=== PATIENT | female | born 1965 | race Asian ===

== ENCOUNTER 2019-12-10 15:19 | Outpatient (REF) | payer OTHER, SELFPAY ==
[2019-12-10 16:39] LABS: Rheumatoid Factor < 15.0 IU/mL (<15.0)
[2019-12-10 17:18] LABS: Erythrocyte Sedimentation Rate 7 MM/HR (0-20)
[2019-12-11 09:18] LABS: Syphilis Screen Nonreactive (Nonreactive)
[2019-12-12 05:47] LABS: Lyme Abs Screen <0.90 index
[2019-12-13 06:11] LABS: IgA 88 mg/dL (47-310); IgG 866 mg/dL (600-1640); IgM 106 mg/dL (50-300)
[2019-12-13 14:46] LABS: Anti Nuclear Antibody Screen NEGATIVE (NEGATIVE)
== END 2019-12-10 15:20 | disposition home or self-care (01) ==
LOC: HO.LAB 15:19
PROVIDERS: PCP Internal Medicine; Visit Provider Psychiatry & Neurology Neurology
DX: M79.603 Pain in arm, unspecified (principal); M79.606 Pain in leg, unspecified
CPT/HCPCS: 36415; 82550; 82784; 85652; 86038; 86039; 86334; 86431; 86618; 86780

== ENCOUNTER 2020-04-15 10:29 | Emergency (ER) | payer OTHER, SELFPAY ==
--- NOTE | ~2020-04-15 | CT_ITS ---
EXAMINATION: CT CHEST WITHOUT IV CONTRAST AND CT ABDOMEN AND PELVIS WITH IV CONTRAST CLINICAL INFORMATION: Pulmonary nodule. Weakness and chest pain. Upper abdominal pain. Poor appetite. COMPARISON: Previous chest x-ray from earlier the same day TECHNIQUE: Axial images through the chest without contrast. Axial images through the abdomen and pelvis following oral and IV contrast. Sagittal and coronal reconstructions on the technologist workstation were performed. Patient dose 4 4 9 mg/cm. This CT examination was performed using dose optimization techniques as appropriate, variously including the following: *Automated exposure control *Adjustment of mA and/or kV according to patient size (this includes techniques or standardized protocols for targeted exams where dose is matched to indication/reason for exam; i.e. extremities or head) *Use of iterative reconstruction technique FINDINGS: Chest: The lungs are clear. No pulmonary nodule is seen. Pulmonary nodule seen on chest x-ray likely corresponds to a nipple shadow. There is no pleural effusion or pleural thickening. The mediastinum is normal. No chest wall mass or enlarged axillary lymph nodes are seen. Abdomen and pelvis: The liver and gallbladder are unremarkable. The spleen is unremarkable. The pancreas is unremarkable. The adrenal glands are unremarkable. There is a 1.5 cm cyst in the upper pole of the right kidney. There is a 2 cm cyst in the lower pole of the right kidney. Kidneys are otherwise unremarkable. The bladder is empty. There is a stool throughout the colon questionable for constipation. Small and large bowel is otherwise unremarkable. The appendix is is not identified. The stomach is not optimally distended. Vascular structures are unremarkable. No hernia is seen. There are no enlarged lymph nodes. The uterus is slightly enlarged and retroverted. The uterus is lobular contour and heterogeneous in attenuation suggestive of multiple fibroids. There is a small amount of ascites in the pelvis. Review at bone windows is unremarkable. CT/CT abdomen pelvis w con IMPRESSION: Chest: Unremarkable exam. Abdomen and pelvis: Right renal cysts. Constipation. Enlarged fibroid uterus.
--- NOTE | ~2020-04-15 | XR_ITS ---
EXAMINATION: XR CHEST CLINICAL INFORMATION: Pain COMPARISON: Previous chest x-ray October 2008 TECHNIQUE: Frontal view of the chest was obtained. FINDINGS: The cardiac and mediastinal contours are normal. There is a 2 cm nodule at the right lung base. This is new from previous exam. The lungs are otherwise clear. There is no pleural effusion or pneumothorax. Bony structures are unremarkable. XR/XR chest 1V IMPRESSION: New 2 cm right pulmonary nodule. Follow-up chest CT scan recommended.
--- NOTE | 2020-04-15 10:34 | ECG_ITS ---
Test Reason : CHEST PAIN Blood Pressure : / mmHG Vent. Rate : 074 BPM Atrial Rate : 074 BPM P-R Int : 134 ms QRS Dur : 078 ms QT Int : 388 ms P-R-T Axes : 079 251 041 degrees QTc Int : 430 ms Normal sinus rhythm Right superior axis deviation Pulmonary disease pattern Right ventricular hypertrophy Septal infarct (cited on or before 08-NOV-2008) Abnormal ECG When compared with ECG of 09-MAR-2019 19:49, QT has shortened Referred By: Kelsea Dudley Electronically Signed By:ARLINE MEDRANO
[2020-04-15 10:43] VITALS: BP 136/90; PULSE 84; RESP 16; TEMP 36.6; O2SAT 100; BMI 16.8
--- NOTE | 2020-04-15 12:49 | ED.CHESTPAIN ---
HPI - Chest Pain General Chief Complaint: Chest Pain Stated Complaint: rapid heartbeat, weakness Time Seen by Provider: 04/15/20 12:49 Source: patient Mode of arrival: ambulatory Limitations: no limitations History of Present Illness HPI narrative: 55 yo female with no sig PMH c/o 2 weeks of chest heaviness today it was worse started while resting 9am mild dyspnea her chest feels heavy she states she feels better now, notes she has had leg and hand cramps recently no other infections MD complaint: chest heaviness Onset (ago): hour(s) (4) Timing of current episode: constant Prior episodes: Yes Onset: during rest Pain location: substernal Pain radiation: none Severity: mild Quality: aching Relieving factors: nothing Exacerbating factors: nothing Associated symptoms: nausea, dyspnea and palpitations Treatment prior to arrival: none Related Data Previous Rx's Medication Instructions Recorded cyclobenzaprine 10 mg PO TID PRN #14 tab 04/15/20 magnesium oxide 400 mg PO DAILY #10 tab 04/15/20 ondansetron 4 mg PO Q8H PRN #20 tab 04/15/20 sennosides [senna] 8.6 mg PO BEDTIME PRN #30 cap 04/15/20 Allergies Allergy/AdvReac Type Severity Reaction Status Date / Time No Known Allergies Allergy Unverified 10/31/19 17:50 Review of Systems Review of Systems: Constitutional : No Weight loss, No Fever, No Chills ENT/Mouth : No sore throat, No Rhinorrhea Eyes: No Eye Pain, No Swelling Cardiovascular : pos Chest Pain, pos SOB, no Dyspnea on Exertion, No Orthopnea, No Edema, pos Palpitations Respiratory : No Cough, No Sputum Gastrointestinal : pos Nausea, No Vomiting, No Diarrhea, No abdominal Pain, No Hematochezia, No Melena Genitourinary : No Dysuria, No Urinary Frequency Musculoskeletal : No joint pain, No Myalgias, No Joint Swelling Skin : No Skin Lesions, No rash Neuro : No Weakness, No Numbness, No Dizziness, No Headache Psych : No Anxiety/Panic, No Depression Heme/Lymph: No Bruising, No Lymphadenopathy Endocrine : No Polyuria, No Polydipsia All other systems reviewed and are negative PMFSH Past Medical History Medical History Patient denies medical problems Social History Social History (Updated 04/15/20 @ 13:17 by Kelsea Dudley DO) Alcohol intake: never Smoking Status: Never smoker Use of substances other than those prescribed or required for medical reasons: No Advance Directives: No Advance Directives Information Provided: No Physical Exam Vital Signs: Vital Signs: Last Vital Signs Temp 97.8 F 04/15/20 10:43 Pulse 86 04/15/20 15:07 Resp 16 04/15/20 15:07 BP 122/67 04/15/20 15:07 Pulse Ox 98 04/15/20 15:07 Body Mass Index 16.8 Appearance: Alert. Oriented X3. No acute distress. Eyes: Pupils equal, round and reactive to light. ENT: Pharynx normal. Neck: Normal inspection. Neck supple. CVS: Normal heart rate and rhythm. Pulses normal. Respiratory: No respiratory distress. Breath sounds normal. Abdomen: Soft and nontender. Skin: Skin warm and dry. Normal skin color. Normal skin turgor. Extremities: No lower extremity edema. No calf ttp Neuro: Oriented X 3. No motor deficit. No sensory deficit. Course Course Course Narrative: nodule noted on CXR will obtain CT scan for mass ddimer, EKG unchanged, trop negative at 5 hours at this time stable for DC MDM - Chest Pain MDM Narrative Medical decision making narrative: 55 yo female no sig PMH here with vague non exertional chest pain that is heavy with some palpitations and mild dyspnea - she feels fine now, symptoms have no triggers have been going on for 2 weeks, happened again today at 10am, at this time will need labs, EKG, troponin x 1, ddimer, CXR, gentle fluids dispo per results and findings. Lab Data Result diagrams: 04/15/20 13:23 04/15/20 13:23 Labs: Lab Results 04/15/20 04/15/20 04/15/20 Range/Units 13:23 13:23 13:23 WBC 3.5 L (4.8-10.8) X10*3/uL RBC 4.35 (4.20-5.50) X10*6/uL Hgb 13.2 (12.0-16.0) g/dl Hct 40.6 (37-47) % MCV 93.3 (80-98) fL MCH 30.3 (27.0-33.0) pg MCHC 32.5 (31.0-35.0) g/dl RDW 13.2 (11.0-16.0) % Plt Count 146 L (160-400) X10*3/uL MPV 9.9 (9.4-12.3) fL Immature Gran % (Auto) 0.0 (0.0-0.4) % Neut % (Auto) 66.3 (45-73) % Lymph % (Auto) 26.3 (20-40) % Wilkes % (Auto) 5.1 (2-11) % Eos % (Auto) 2.0 (0-4) % Baso % (Auto) 0.3 (0-2) % Lymph # (Auto) 0.9 L (1.2-4.9) X10*3/uL [place] # (Auto) 0.2 (0.1-1.2) X10*3/uL Eos # (Auto) 0.1 (0.0-0.4) X10*3/uL Baso # (Auto) 0.0 (0.0-0.2) X10*3/uL Abs Immat Gran (auto) 0.00 (0.00-0.03) X10*3/uL Absolute Neuts (auto) 2.3 (2.0-8.3) X10*3/uL Absolute Nucleated RBC 0.000 (0.0-0.012) X10*3/uL Nucleated RBC % (auto) 0.0 (0.0-0.2) /100WBC D-Dimer < 200 NG/ML Sodium 143 (135-145) mmol/L Potassium 4.1 (3.3-5.1) mmol/L Chloride 107 (96-108) mmol/L Carbon Dioxide 29 (22-29) mmol/L Anion Gap 11 L (12-20) BUN 11 (9-16) mg/dL Creatinine 0.77 (0.5-1.4) mg/dL Estim Creat Clear Calc 57.9 Estimated GFR > 60 Random Glucose 79 (60-115) mg/dL Calcium 8.9 (8.4-10.2) mg/dL Magnesium 2.4 (1.6-2.6) mg/dL Total Bilirubin 0.9 (0.0-1.0) mg/dL Direct Bilirubin 0.3 (0.0-0.5) mg/dL AST 32 H (5-31) U/L ALT 31 (0-31) U/L Alkaline Phosphatase 79 (39-117) U/L Troponin I High Sens (<3.5-17.0) ng/L B-Natriuretic Peptide (<100) pg/mL Total Protein 6.6 (6.5-8.0) g/dL Albumin 4.6 (3.5-5.0) g/dL Lipase 36 (8-78) U/L COVID-19 ([facility]) (Negative) COVID-19 Clin Com 04/15/20 04/15/20 Range/Units 13:23 13:23 WBC (4.8-10.8) X10*3/uL RBC (4.20-5.50) X10*6/uL Hgb (12.0-16.0) g/dl Hct (37-47) % MCV (80-98) fL MCH (27.0-33.0) pg MCHC (31.0-35.0) g/dl RDW (11.0-16.0) % Plt Count (160-400) X10*3/uL MPV (9.4-12.3) fL Immature Gran % (Auto) (0.0-0.4) % Neut % (Auto) (45-73) % Lymph % (Auto) (20-40) % [place] % (Auto) (2-11) % Eos % (Auto) (0-4) % Baso % (Auto) (0-2) % Lymph # (Auto) (1.2-4.9) X10*3/uL [place] # (Auto) (0.1-1.2) X10*3/uL Eos # (Auto) (0.0-0.4) X10*3/uL Baso # (Auto) (0.0-0.2) X10*3/uL Abs Immat Gran (auto) (0.00-0.03) X10*3/uL Absolute Neuts (auto) (2.0-8.3) X10*3/uL Absolute Nucleated RBC (0.0-0.012) X10*3/uL Nucleated RBC % (auto) (0.0-0.2) /100WBC D-Dimer NG/ML Sodium (135-145) mmol/L Potassium (3.3-5.1) mmol/L Chloride (96-108) mmol/L Carbon Dioxide (22-29) mmol/L Anion Gap (12-20) BUN (9-16) mg/dL Creatinine (0.5-1.4) mg/dL Estim Creat Clear Calc Estimated GFR Random Glucose (60-115) mg/dL Calcium (8.4-10.2) mg/dL Magnesium (1.6-2.6) mg/dL Total Bilirubin (0.0-1.0) mg/dL Direct Bilirubin (0.0-0.5) mg/dL AST (5-31) U/L ALT (0-31) U/L Alkaline Phosphatase (39-117) U/L Troponin I High Sens < 3.5 (<3.5-17.0) ng/L B-Natriuretic Peptide 82 (<100) pg/mL Total Protein (6.5-8.0) g/dL Albumin (3.5-5.0) g/dL Lipase (8-78) U/L COVID-19 ([facility]) Negative (Negative) COVID-19 Clin Com See Note ECG Data ECG #1: Attestation: I personally reviewed and interpreted this ECG as follows: ECG interpretation date: 04/15/20 ECG interpretation time: 12:55 Interpretation: Rate: 74 Rhythm: NSR [place]: right enlarged. Normal YOAN. Normal QRS complex. poor R wave progression ST T wave : no ALFONSO, nonspecific qTC: normal prior studies: no change Feb 2019 The study has been interpreted contemporaneously by me. . Discharge Plan Discharge Clinical Impression: Atypical chest pain Constipation Qualifiers: Constipation type: other constipation type Qualified Code(s): K59.09 - Other constipation Patient Disposition: Home, Self-Care Instructions: Chest Pain (ED), Constipation (ED), Weakness (ED) Additional Instructions: return to ED for any worsening symptoms or concerns your COVID test was negative you did have some fibroids in your uterus please discuss with your primary care doctor Prescriptions: New ondansetron 4 mg tablet,disintegrating 4 mg PO Q8H PRN (Reason: nausea and vomiting) Qty: 20 RF: 0 senna 8.6 mg capsule 8.6 mg PO BEDTIME PRN (Reason: constipation) Qty: 30 RF: 0 magnesium oxide 400 mg magnesium tablet 400 mg PO DAILY Qty: 10 RF: 0 cyclobenzaprine 10 mg tablet 10 mg PO TID PRN (Reason: muscle spasm) Qty: 14 RF: 0 Referrals: Jie Booth MD [Primary Care Provider] - 2 days (if not better)
[2020-04-15 13:30] LABS: MANUAL DIFF FLAG NO
[2020-04-15 13:33] LABS: Basophils Percent Auto 0.3 % (0-2); Eosinophils Absolute Auto 0.1 X10*3/uL (0.0-0.4); Hematocrit 40.6 % (37-47); Hemoglobin 13.2 g/dl (12.0-16.0); Lymphocytes Absolute Auto 0.9 X10*3/uL (1.2-4.9); Lymphocytes Percent Auto 26.3 % (20-40); Mean Corpuscular HGB Conc 32.5 g/dl (31.0-35.0); Mean Corpuscular Hemoglobin 30.3 pg (27.0-33.0); Mean Corpuscular Volume 93.3 fL (80-98); Mean Platelet Volume 9.9 fL (9.4-12.3); Monocytes Absolute Auto 0.2 X10*3/uL (0.1-1.2); Monocytes Percent Auto 5.1 % (2-11); Neutrophils Absolute Auto 2.3 X10*3/uL (2.0-8.3); Neutrophils Percent Auto 66.3 % (45-73); Platelet Count 146 X10*3/uL (160-400); Red Blood Count 4.35 X10*6/uL (4.20-5.50); Red Cell Distribution Width 13.2 % (11.0-16.0); White Blood Count 3.5 X10*3/uL (4.8-10.8)
[2020-04-15 13:51] LABS: COVID-19 Test Negative (Negative)
[2020-04-15 13:52] LABS: D Dimer < 200 NG/ML
[2020-04-15 14:00] LABS: Alanine Aminotransferase 31 U/L (0-31); Albumin Level 4.6 g/dL (3.5-5.0); Alkaline Phosphatase 79 U/L (39-117); Anion Gap 11 (12-20); Aspartate Amino Transferase 32 U/L (5-31); Bilirubin Direct 0.3 mg/dL (0.0-0.5); Bilirubin Total 0.9 mg/dL (0.0-1.0); Blood Urea Nitrogen 11 mg/dL (9-16); Calcium 8.9 mg/dL (8.4-10.2); Carbon Dioxide 29 mmol/L (22-29); Chloride 107 mmol/L (96-108); Creatinine Clr Calc Pharmacy 57.9; Estimated Glomerular Filt Rate > 60; Glucose Random 79 mg/dL (60-115); Lipase 36 U/L (8-78); Magnesium 2.4 mg/dL (1.6-2.6); Potassium 4.1 mmol/L (3.3-5.1); Sodium 143 mmol/L (135-145); Total Protein 6.6 g/dL (6.5-8.0)
[2020-04-15 14:02] LABS: B Type Natriuretic Peptide 82 pg/mL (<100)
[2020-04-15 14:05] LABS: Troponin-I High Sensitivity < 3.5 ng/L (<3.5-17.0)
[2020-04-15] MEDS: 0.9 % Sodium Chloride 500 ML IV (14:30)
[2020-04-15] MEDS: iohexoL 350 MG/ML 100 ML INFUS..BTL 85 ML IV (14:42)
[2020-04-15 15:07] VITALS: BP 122/67; PULSE 86; RESP 16; O2SAT 98
== END 2020-04-15 15:39 | disposition home or self-care (01) ==
PROVIDERS: Emergency Provider Emergency Medicine; PCP Internal Medicine
DX: R07.89 Other chest pain (principal); K59.09 Other constipation; Z20.822 Contact with and (suspected) exposure to COVID-19; Z79.899 Other long term (current) drug therapy
CPT/HCPCS: 36415; 71045; 71250; 74177; 80048; 80076; 83690; 83735; 83880; 84484; 85025; 85379; 87635; 93005; 99285; Q9967

== ENCOUNTER 2020-07-01 21:43 | Emergency (ER) | payer OTHER, SELFPAY ==
--- NOTE | ~2020-07-01 | XR_ITS ---
EXAMINATION: XR CHEST CLINICAL INFORMATION: Chest pain COMPARISON: CT chest 04/15/2020. Chest x-ray 04/15/2020 TECHNIQUE: Frontal view of the chest was obtained. FINDINGS: No significant abnormality is noted involving the heart, lungs, mediastinum, bony thorax or soft tissues. (Redemonstration of bilateral nipple shadows.) XR/XR chest 1V IMPRESSION: Unremarkable examination.
--- NOTE | 2020-07-01 21:45 | ECG_ITS ---
Test Reason : DIZZY Blood Pressure : / mmHG Vent. Rate : 072 BPM Atrial Rate : 072 BPM P-R Int : 150 ms QRS Dur : 086 ms QT Int : 424 ms P-R-T Axes : 072 259 056 degrees QTc Int : 464 ms Normal sinus rhythm Right superior axis deviation Possible Right ventricular hypertrophy Septal infarct (cited on or before 08-NOV-2008) Abnormal ECG When compared with ECG of 15-APR-2020 10:34, No significant change was found Referred By: Generic ED Physician Electronically Signed By:SHAKA STRICKLAND MD
[2020-07-01 21:49] VITALS: BP 139/85; PULSE 74; RESP 16; TEMP 36.8; O2SAT 98; BMI 16.6
--- NOTE | 2020-07-02 00:10 | ED.CHESTPAIN ---
HPI - Chest Pain General Chief Complaint: Chest Pain Stated Complaint: chest pain,dizziness Time Seen by Provider: 07/02/20 00:10 Source: patient and family (son) Mode of arrival: ambulatory Limitations: no limitations History of Present Illness HPI narrative: Patient is a 55-year-old female with no significant past medical history who is presenting with central chest pain x1 year. She states the pain is intermittent and she also wakes up with bilateral hand numbness and cramping, left more than right. She is also complaining of dizziness She also is complaining of extreme fatigue for an hour which resolves on its own and metallic taste in her mouth. She also states she has a headache and took ibuprofen once 3 days ago. She denies shortness of breath. She states she takes no medications on a daily basis. Patient states her symptoms have resolved. Related Data Previous Rx's Medication Instructions Recorded cyclobenzaprine 10 mg PO TID PRN #14 tab 04/15/20 magnesium oxide 400 mg PO DAILY #10 tab 04/15/20 ondansetron 4 mg PO Q8H PRN #20 tab 04/15/20 sennosides [senna] 8.6 mg PO BEDTIME PRN #30 cap 04/15/20 Allergies Allergy/AdvReac Type Severity Reaction Status Date / Time No Known Allergies Allergy Unverified 10/31/19 17:50 Review of Systems Review of Systems: Yes all other systems are reviewed and are negative PMFSH Past Medical History Medical History Patient denies medical problems Social History Social History Alcohol intake: never Smoking Status: Never smoker Advance Directives: No Advance Directives Information Provided: No Physical Exam Vital Signs: Vital Signs: Last Vital Signs Temp 98.2 F 07/01/20 21:49 Pulse 74 07/01/20 21:49 Resp 16 07/01/20 21:49 BP 139/85 07/01/20 21:49 Pulse Ox 98 07/01/20 21:49 Body Mass Index 16.6 Const: General: cooperative, healthy appearing, comfortable, no acute distress and well developed Orientation/consciousness: patient oriented x3 Limitations: no limitations HENMT: Head: Yes normal to inspection Eyes: General: appearance normal, both eyes and all related structures Neck: Neck: Yes normal visual inspection and Yes full ROM Resp: Effort & Inspection: normal respiratory effort and able to speak in complete sentences Auscultation: clear to auscultation bilaterally Cardio: Rate: regular rate Rhythm: regular rhythm Heart sounds: normal S1 and S2 GI: Inspection: Yes normal to inspection Palpation (GI): Soft to palpation and nontender Skin: General skin exam: no rashes or lesions noted Neuro: General: patient oriented x3 Cranial nerves: Yes CN's II-XII intact bilaterally Extrem: General: Yes normal to inspection Course Course Course Narrative: Patient is a 55-year-old female with no significant past medical history who is presenting with central chest pain x1 year. She states the pain is intermittent and she also wakes up with bilateral hand numbness and cramping, left more than right. She is also complaining of fatigue, dizziness and headache. EKG is NSR with 72 BPM, will get labs cardiac labs, if everything is normal, will likely discharge home as this seems to be a chronic issue. Reevaluation(s) Reevaluation #1: Labs show a pancytopenia with wbc 3.8, rbc 3.91 and platelets 130. Will have pt follow up with hematology. Chest x-ray was unremarkable. Time: 01:33 [facility] - Chest Pain Lab Data Result diagrams: 07/02/20 00:37 07/02/20 00:37 Labs: Lab Results 07/02/20 07/02/20 07/02/20 Range/Units 00:37 00:37 00:37 WBC 3.8 L (4.8-10.8) X10*3/uL RBC 3.91 L (4.20-5.50) X10*6/uL Hgb 12.1 (12.0-16.0) g/dl Hct 37.1 (37-47) % MCV 94.9 (80-98) fL MCH 30.9 (27.0-33.0) pg MCHC 32.6 (31.0-35.0) g/dl RDW 13.3 (11.0-16.0) % Plt Count 130 L (160-400) X10*3/uL MPV 9.9 (9.4-12.3) fL Immature Gran % (Auto) 0.0 (0.0-0.4) % Neut % (Auto) 54.3 (45-73) % Lymph % (Auto) 33.3 (20-40) % [place] % (Auto) 7.1 (2-11) % Eos % (Auto) 4.8 H (0-4) % Baso % (Auto) 0.5 (0-2) % Lymph # (Auto) 1.3 (1.2-4.9) X10*3/uL [place] # (Auto) 0.3 (0.1-1.2) X10*3/uL Eos # (Auto) 0.2 (0.0-0.4) X10*3/uL Baso # (Auto) 0.0 (0.0-0.2) X10*3/uL Abs Immat Gran (auto) 0.00 (0.00-0.03) X10*3/uL Absolute Neuts (auto) 2.1 (2.0-8.3) X10*3/uL Absolute Nucleated RBC 0.000 (0.0-0.012) X10*3/uL Nucleated RBC % (auto) 0.0 (0.0-0.2) /100WBC Hold Blue Top SEE NOTE Sodium 142 (135-145) mmol/L Potassium 4.1 (3.3-5.1) mmol/L Chloride 107 (96-108) mmol/L Carbon Dioxide 28 (22-29) mmol/L Anion Gap 11 L (12-20) BUN 21 H D (9-16) mg/dL Creatinine 0.78 (0.5-1.4) mg/dL Estim Creat Clear Calc 56.5 Estimated GFR > 60 Random Glucose 131 H D (60-115) mg/dL Calcium 8.8 (8.4-10.2) mg/dL Troponin I High Sens (<3.5-17.0) ng/L B-Natriuretic Peptide (<100) pg/mL Urine Color Urine Appearance Urine pH (5.0-8.0) Ur Specific Gerald[place] (1.005-1.025) Urine Protein (NEG-TRACE) MG/DL Urine Glucose (UA) (NEG) MG/DL Urine Ketones (NEG) MG/DL Urine Blood (NEG) Urine Nitrite (NEG) Ur Leukocyte Esterase (NEG) Urine RBC (0) /HPF Urine WBC (0-4) /HPF Ur Squamous Epith Cells /LPF Urine Bacteria /LPF 07/02/20 07/02/20 Range/Units 00:37 00:45 WBC (4.8-10.8) X10*3/uL RBC (4.20-5.50) X10*6/uL Hgb (12.0-16.0) g/dl Hct (37-47) % MCV (80-98) fL MCH (27.0-33.0) pg MCHC (31.0-35.0) g/dl RDW (11.0-16.0) % Plt Count (160-400) X10*3/uL MPV (9.4-12.3) fL Immature Gran % (Auto) (0.0-0.4) % Neut % (Auto) (45-73) % Lymph % (Auto) (20-40) % [place] % (Auto) (2-11) % Eos % (Auto) (0-4) % Baso % (Auto) (0-2) % Lymph # (Auto) (1.2-4.9) X10*3/uL [place] # (Auto) (0.1-1.2) X10*3/uL Eos # (Auto) (0.0-0.4) X10*3/uL Baso # (Auto) (0.0-0.2) X10*3/uL Abs Immat Gran (auto) (0.00-0.03) X10*3/uL Absolute Neuts (auto) (2.0-8.3) X10*3/uL Absolute Nucleated RBC (0.0-0.012) X10*3/uL Nucleated RBC % (auto) (0.0-0.2) /100WBC Hold Blue Top Sodium (135-145) mmol/L Potassium (3.3-5.1) mmol/L Chloride (96-108) mmol/L Carbon Dioxide (22-29) mmol/L Anion Gap (12-20) BUN (9-16) mg/dL Creatinine (0.5-1.4) mg/dL Estim Creat Clear Calc Estimated GFR Random Glucose (60-115) mg/dL Calcium (8.4-10.2) mg/dL Troponin I High Sens < 3.5 (<3.5-17.0) ng/L B-Natriuretic Peptide 38 (<100) pg/mL Urine Color YELLOW Urine Appearance HAZY Urine pH 7.5 (5.0-8.0) Ur Specific Gerald[place] 1.020 (1.005-1.025) Urine Protein NEG (NEG-TRACE) MG/DL Urine Glucose (UA) NEG (NEG) MG/DL Urine Ketones NEG (NEG) MG/DL Urine Blood 1+ H (NEG) Urine Nitrite NEG (NEG) Ur Leukocyte Esterase NEG (NEG) Urine RBC 1-4 (0) /HPF Urine WBC 1-4 (0-4) /HPF Ur Squamous Epith Cells 1+ /LPF Urine Bacteria 2+ /LPF ECG Data ECG #1: Attestation: I personally reviewed and interpreted this ECG as follows: ECG interpretation date: 07/02/20 ECG interpretation time: 00:11 Interpretation: [place] [id number] ReportDraft Patient: Carlos Castellanos DMR#: [id number]: 1965Acct:[id number]/Sex: 55 / FADM Date: 07/01/20Loc: [address] Dr: Ordering Physician: Generic ED Physician Date of Service: 07/01/20 Procedure(s): ECG 12 lead EKG Accession Number(s): [id number] cc: ~ Test Reason : DIZZY Blood Pressure : / mmHG Vent. Rate : 072 BPM Atrial Rate : 072 BPM P-R Int : 150 ms QRS Dur : 086 ms QT Int : 424 ms P-R-T Axes : 072 259 056 degrees QTc Int : 464 ms Normal sinus rhythm Right superior axis deviation Possible Right ventricular hypertrophy Septal infarct (cited on or before 08-NOV-2008) Abnormal ECG When compared with ECG of 15-APR-2020 10:34, No significant change was found Referred By: Generic ED Physician Electronically Signed By: Dictated By:Signed By: DD/ 51TD/TT: 07/01/202151Transcriptionist: Discharge Plan Discharge Clinical Impression: Pancytopenia Patient Disposition: Home, Self-Care Instructions: Pancytopenia (DC) Additional Instructions: Today while you were in the ED, your white blood cells, red blood cells and platelets were all noted to be lower than average. A hand candle molder is a kind of doctor who can help you find out why and address the issue. Please be sure to follow-up with your PCP or the hand candle molder I have listed below or a hand candle molder of your choosing. Prescriptions: No Action ondansetron 4 mg tablet,disintegrating 4 mg PO Q8H PRN (Reason: nausea and vomiting) Qty: 20 RF: 0 senna 8.6 mg capsule 8.6 mg PO BEDTIME PRN (Reason: constipation) Qty: 30 RF: 0 magnesium oxide 400 mg magnesium tablet 400 mg PO DAILY Qty: 10 RF: 0 cyclobenzaprine 10 mg tablet 10 mg PO TID PRN (Reason: muscle spasm) Qty: 14 RF: 0 Referrals: Coreen Abarca MD [Physician] - 2 days (pancytopenia in ED 07/01/20)
[2020-07-02 00:46] LABS: MANUAL DIFF FLAG NO
[2020-07-02 00:47] LABS: Basophils Percent Auto 0.5 % (0-2); Eosinophils Absolute Auto 0.2 X10*3/uL (0.0-0.4); Eosinophils Percent Auto 4.8 % (0-4); Hematocrit 37.1 % (37-47); Hemoglobin 12.1 g/dl (12.0-16.0); Lymphocytes Absolute Auto 1.3 X10*3/uL (1.2-4.9); Lymphocytes Percent Auto 33.3 % (20-40); Mean Corpuscular HGB Conc 32.6 g/dl (31.0-35.0); Mean Corpuscular Hemoglobin 30.9 pg (27.0-33.0); Mean Corpuscular Volume 94.9 fL (80-98); Mean Platelet Volume 9.9 fL (9.4-12.3); Monocytes Absolute Auto 0.3 X10*3/uL (0.1-1.2); Monocytes Percent Auto 7.1 % (2-11); Neutrophils Absolute Auto 2.1 X10*3/uL (2.0-8.3); Neutrophils Percent Auto 54.3 % (45-73); Platelet Count 130 X10*3/uL (160-400); Red Blood Count 3.91 X10*6/uL (4.20-5.50); Red Cell Distribution Width 13.3 % (11.0-16.0); White Blood Count 3.8 X10*3/uL (4.8-10.8)
[2020-07-02 00:53] LABS: Glucose Urine UA NEG (NEG); Leukocyte Esterase Urine NEG (NEG); Nitrite Urine NEG (NEG); PH 7.5 (5.0-8.0); Urine Blood 1+ (NEG); Urine Ketones NEG (NEG); Urine Protein NEG (NEG-TRACE)
[2020-07-02 00:54] LABS: Appearance Urine HAZY; Color Urine YELLOW
[2020-07-02 01:03] LABS: Bacteria Urine 2+ /LPF; Squamous Epithelial Cell Urine 1+ /LPF
[2020-07-02 01:11] LABS: Anion Gap 11 (12-20); Blood Urea Nitrogen 21 mg/dL (9-16); Calcium 8.8 mg/dL (8.4-10.2); Carbon Dioxide 28 mmol/L (22-29); Chloride 107 mmol/L (96-108); Creatinine Clr Calc Pharmacy 56.5; Estimated Glomerular Filt Rate > 60; Glucose Random 131 mg/dL (60-115); Potassium 4.1 mmol/L (3.3-5.1); Sodium 142 mmol/L (135-145)
[2020-07-02 01:16] LABS: B Type Natriuretic Peptide 38 pg/mL (<100); Troponin-I High Sensitivity < 3.5 ng/L (<3.5-17.0)
[2020-07-02 02:00] VITALS: BP 108/72; PULSE 77; RESP 18; TEMP 36.9; O2SAT 97
== END 2020-07-02 02:27 | disposition home or self-care (01) ==
PROVIDERS: Physician Assistant; Emergency Provider Emergency Medicine
DX: D61.818 Other pancytopenia (principal); R07.9 Chest pain, unspecified; R42 Dizziness and giddiness; R51.9 Headache, unspecified; Z79.899 Other long term (current) drug therapy
CPT/HCPCS: 36415; 71045; 80048; 81001; 83880; 84484; 85025; 93005; 99284

== ENCOUNTER 2020-07-09 15:38 | Outpatient (REF) | payer OTHER, SELFPAY | END 2020-07-09 15:39 | disposition home or self-care (01) | LOC: HO.LAB 15:38 | PROVIDERS: Visit Provider Internal Medicine | DX: Z20.822 Contact with and (suspected) exposure to COVID-19 (principal) | CPT/HCPCS: C9803; U0003; U0005 ==

== ENCOUNTER 2022-03-10 12:15 | Outpatient (REF) | payer OTHER, SELFPAY ==
[2022-03-10 15:11] LABS: Alanine Aminotransferase 20 U/L (0-31); Albumin Level 4.5 g/dL (3.5-5.0); Alkaline Phosphatase 90 U/L (39-117); Anion Gap 13 (12-20); Aspartate Amino Transferase 27 U/L (5-31); Bilirubin Total 0.8 mg/dL (0.0-1.0); Blood Urea Nitrogen 14 mg/dL (9-16); Calcium 9.2 mg/dL (8.4-10.2); Carbon Dioxide 28 mmol/L (22-29); Chloride 107 mmol/L (96-108); Estimated Glomerular Filt Rate > 60; Glucose Random 79 mg/dL (60-115); Phosphorus 3.7 mg/dL (2.7-4.5); Potassium 3.9 mmol/L (3.3-5.1); Sodium 144 mmol/L (135-145); Total Protein 6.8 g/dL (6.5-8.0)
[2022-03-10 15:29] LABS: Free T4 (Free Thyroxine) 1.01 ng/dL (0.71-1.85); Thyroid Stimulating Hormone 0.85 uIU/mL (0.32-4.0); Vitamin D 25-OH Total 33.5 ng/mL (>30)
[2022-03-11 11:49] LABS: Calcium (PTHI) 9.6 mg/dL (8.6-10.4); PTHI 56 pg/mL (16-77)
== END 2022-03-10 12:16 | disposition home or self-care (01) ==
LOC: HO.LAB 12:15
PROVIDERS: Visit Provider Internal Medicine
DX: C73 Malignant neoplasm of thyroid gland (principal); E55.9 Vitamin D deficiency, unspecified
CPT/HCPCS: 36415; 80053; 82306; 83970; 84100; 84439; 84443; 99202

== ENCOUNTER 2022-06-29 08:53 | Outpatient (REF) | payer OTHER, SELFPAY ==
[2022-06-29 11:13] LABS: Albumin Level 4.1 g/dL (3.5-5.0); Estimated Glomerular Filt Rate > 60; Phosphorus 3.5 mg/dL (2.7-4.5)
[2022-06-29 11:30] LABS: Thyroid Stimulating Hormone 0.05 uIU/mL (0.32-4.0); Vitamin D 25-OH Total 41.1 ng/mL (>30)
[2022-07-01 16:33] LABS: Calcium (PTHI) 8.9 mg/dL (8.6-10.4); PTHI 22 pg/mL (16-77)
[2022-07-13 17:43] LABS: Thyroglobulin Antibody 16 IU/mL (<=1); Thyroglobulin LC/MS/MS 2.8 ng/mL (Athyrotic: <0)
== END 2022-06-29 08:54 | disposition home or self-care (01) ==
LOC: HO.10HDL 08:53
PROVIDERS: Visit Provider Internal Medicine
DX: C73 Malignant neoplasm of thyroid gland (principal); E55.9 Vitamin D deficiency, unspecified
CPT/HCPCS: 36415; 82040; 82306; 82565; 83970; 84100; 84432; 84439; 84443; 86800

== ENCOUNTER → 2022-07-06 07:50 | Outpatient (BNVA) | payer OTHER, SELFPAY | PROVIDERS: PCP Internal Medicine; Visit Provider Internal Medicine | DX: C73 Malignant neoplasm of thyroid gland (principal); E55.9 Vitamin D deficiency, unspecified | CPT/HCPCS: 99212 ==

== ENCOUNTER 2022-07-20 08:48 | Outpatient (REF) | payer OTHER, SELFPAY ==
[2022-07-20 12:31] LABS: Free T4 (Free Thyroxine) 1.28 ng/dL (0.71-1.85); Thyroid Stimulating Hormone 0.03 uIU/mL (0.32-4.0)
[2022-07-24 03:19] LABS: Thyroglobulin Antibody 14 IU/mL (<=1)
[2022-07-31 18:33] LABS: Thyroglobulin LC/MS/MS 0.8 ng/mL (Athyrotic: <0)
== END 2022-07-20 08:49 | disposition home or self-care (01) ==
LOC: HO.10HDL 08:48
PROVIDERS: Visit Provider Internal Medicine
DX: C73 Malignant neoplasm of thyroid gland (principal)
CPT/HCPCS: 36415; 84432; 84439; 84443; 86800

== ENCOUNTER 2022-08-29 07:51 | Outpatient (AMB) | payer OTHER, SELFPAY ==
--- NOTE | 2022-08-29 08:08 | AM.OFFVISNUR ---
Intake Intake Visit Reasons: Pt will arrive @ 7:45am Thyrogen Allergies No Known Allergies Allergy (Verified 07/06/22 07:53) Office Meds thyrotropin destin Performing Provider: Helen Romano DO Administered by: Helen Rubin LPN on 08/29/22 08:08 Dose Route Admin Location Lot Number Expiration Date [employer] Internet Security Specialist 0.9 mg IM right buttock [id number] 05/14/24 [address]-5 [employer] Comments: consent obtained for thyrogen injection. Coding Diagnoses Assessment & Plan Assessment & Plan Orders: Orders AMB Thyrotropin [place] Injection Patient Supplied 08/29/22 C73 - Malignant neoplasm of thyroid gland
== END 2022-08-29 09:02 | disposition home or self-care (01) ==
PROVIDERS: PCP Internal Medicine; Visit Provider Internal Medicine
DX: C73 Malignant neoplasm of thyroid gland (principal)

== ENCOUNTER → 2022-08-29 07:51 | Outpatient (BNVA) | payer OTHER, SELFPAY | PROVIDERS: PCP Internal Medicine; Visit Provider Internal Medicine | DX: C73 Malignant neoplasm of thyroid gland (principal) | CPT/HCPCS: 96372 ==

== ENCOUNTER 2022-08-30 08:05 | Outpatient (AMB) | payer OTHER, SELFPAY ==
--- NOTE | 2022-08-30 08:27 | AM.OFFVISNUR ---
Intake Intake Visit Reasons: Thyrogen Allergies No Known Allergies Allergy (Verified 07/06/22 07:53) Office Meds thyrotropin destin Performing Provider: Gabriel Gibbons MD Administered by: Wiliam Bateman RN on 08/30/22 08:15 Dose Route Admin Location Lot Number Expiration Date [facility] Career Consultant 0.9 mg IM left buttock [id number] 05/14/24 [address]-2 [employer] Comments: consent obtained for thyrogen 2nd injection. Patient reminded to do labs tomorrow at [facility] in the morning. Patient tolerated well and had no questions. Coding Diagnoses Assessment & Plan Assessment & Plan Orders: Orders AMB Thyrotropin [place] Injection Patient Supplied Today C73 - Malignant neoplasm of thyroid gland
== END 2022-08-30 13:35 | disposition home or self-care (01) ==
PROVIDERS: PCP Internal Medicine; Visit Provider Internal Medicine Endocrinology, Diabetes & Metabolism
DX: C73 Malignant neoplasm of thyroid gland (principal)

== ENCOUNTER → 2022-08-30 08:05 | Outpatient (BNVA) | payer OTHER, SELFPAY | PROVIDERS: PCP Internal Medicine; Visit Provider Internal Medicine Endocrinology, Diabetes & Metabolism | DX: C73 Malignant neoplasm of thyroid gland (principal) | CPT/HCPCS: 96372 ==

== ENCOUNTER 2022-08-31 07:57 | Outpatient (REF) | payer OTHER, SELFPAY ==
[2022-08-31 10:23] LABS: Thyroid Stimulating Hormone > 100.00 uIU/mL (0.32-4.0)
[2022-09-10 18:04] LABS: Thyroglobulin Antibody 10 IU/mL (<=1); Thyroglobulin LC/MS/MS <0.4 ng/mL (Athyrotic: <0)
== END 2022-08-31 07:58 | disposition home or self-care (01) ==
LOC: HO.10HDL 07:57
PROVIDERS: Visit Provider Internal Medicine
DX: C73 Malignant neoplasm of thyroid gland (principal)
CPT/HCPCS: 36415; 84432; 84439; 84443; 86800

== ENCOUNTER 2022-10-14 09:38 | Outpatient (AMB) | payer OTHER, SELFPAY ==
--- NOTE | 2022-10-14 09:45 | MHC.OFFVIS ---
Intake Vital Signs 10/14/22 09:48 Height 5 ft 4 in Weight 97 lb 7.109 oz BMI 16.7 BP 118/78 Blood Pressure Location Lt brachial Position Sitting Pulse 64 Pulse Source Pulse Oximeter Intake Visit Reasons: Thyroid cancer/NM results in/confirmed Intake Note: Patient present for thyroid cancer/NM results office visit. Sample Maker Original Required: No Accompanied by: Self / Same As Patient Allergies No Known Allergies Allergy (Verified 10/14/22 09:49) Medication List - Last Reconciled 10/14/22 by Gabriel Gibbons MD calcium citrate-vitamin D3 315 mg-6.25 mcg (250 unit) 2 tabs PO BID levothyroxine 88 mcg PO DAILY 90 days multivitamin 1 tab PO DAILY HPI HPI Comments History of Present Illness Details 57 YO Female with no significant PMHx who is seen in F/U for papillary thyroid cancer. Patient last saw Dr. Cortez on 07/06/2022 She was found to have a multinodular thyroid and underwent FNA biopsy of her isthmus 1.1 cm thyroid nodule 01/31/2022 with cytology malignant (bethesda category ), consistent with papillary thyroid carcinoma. She was subsequently referred to Endocrinology. She then underwent a total thyroidectomy with Dr. Walker 05/24/2022. Surgical path revealed 1.5 cm unifocal papillary thyroid carcinoma, tall cell type. No angioinvasion, no lymphatic invasion, no perineural invasion or extrathyroidal extension. Margins were uninvolved. There were 2/4 lymph nodes positive for disease. This was [id number]. Postoperatively she was started on levothyroxine 88 mcg PO daily. TG levels pending at this time. She denies any symptoms of hyper or hypothyroidism. She denies any family history of thyroid cancer. She denies any personal history of radiation to the head or the neck. Labs: Laboratory Tests 06/29/22 06/29/22 08:55 08:55 TSH 0.05 L Free T4 1.30 PTH Intact 22 Calcium (PTH Intac t) 8.9 She just had a total body scan performed with Thyrogen which showed no visible uptake. She does have positive anti-thyroglobulin antibody which make thyroglobulin uninterpretable [facility] Medical History Patient denies medical problems Thyroid cancer Vitamin D deficiency Surgical History Hx of total thyroidectomy Family History Paternal Grandmother Lung cancer Father No known health problems Mother Abnormal thyroid biopsy Social History Alcohol intake: never Patient Tobacco Use Status: Never used Tobacco Physical Exam Const Other: Healed scar status post thyroidectomy. There is the absence of any adenopathy Assessment & Plan Assessment & Plan (1) Thyroid cancer: Code(s): C73 - Malignant neoplasm of thyroid gland Plan: This is a 57-year-old female with a history of papillary cancer status post total thyroidectomy Surgical path revealed 1.5 cm unifocal papillary thyroid carcinoma, tall cell type. No angioinvasion, no lymphatic invasion, no perineural invasion or extrathyroidal extension. Margins were uninvolved. There were 2/4 lymph nodes positive for disease. This was [id number]. She underwent radioactive iodine therapy in August of 2022. Recent post-treatment total body scan showed the absence of any iodine avid distant disease. She is currently on 88 mcg levothyroxine. She feels fatigued but no other symptoms of hypothyroidism or hyperthyroidism Plan is to recheck TSH, free T4 with thyroglobulin in 6 weeks time. With keep TSH on low normal side. Will obtain neck ultrasound in the next 3 months time with further restaging at that point Orders: Orders Free T4 (Free Thyroxine) 6 Weeks C73 - Malignant neoplasm of thyroid gland Thyroid Stimulating Hormone 6 Weeks C73 - Malignant neoplasm of thyroid gland Thyroglobulin Tumor Marker 6 Weeks C73 - Malignant neoplasm of thyroid gland US thyroid 3 Months C73 - Malignant neoplasm of thyroid gland Coding Level of Care Code Est Pt Level 3 (10199) Diagnoses Thyroid cancer C73
[2022-10-14 09:48] VITALS: BP 118/78; PULSE 64; BMI 16.7
== END 2022-10-14 10:26 | disposition home or self-care (01) ==
PROVIDERS: PCP Internal Medicine; Visit Provider Internal Medicine Endocrinology, Diabetes & Metabolism
DX: C73 Malignant neoplasm of thyroid gland (principal)
CPT/HCPCS: 99213

== ENCOUNTER → 2022-10-14 09:38 | Outpatient (BNVA) | payer OTHER, SELFPAY | PROVIDERS: PCP Internal Medicine; Visit Provider Internal Medicine Endocrinology, Diabetes & Metabolism | DX: C73 Malignant neoplasm of thyroid gland (principal) | CPT/HCPCS: 99212 ==

== ENCOUNTER 2022-11-28 09:24 | Outpatient (REF) | payer OTHER, SELFPAY ==
[2022-11-28 12:29] LABS: Free T4 (Free Thyroxine) 1.16 ng/dL (0.71-1.85); Thyroid Stimulating Hormone 0.01 uIU/mL (0.32-4.0)
[2022-12-10 01:29] LABS: Thyroglobulin Antibody 4 IU/mL (<=1); Thyroglobulin LC/MS/MS <0.4 ng/mL (Athyrotic: <0)
== END 2022-11-28 09:25 | disposition home or self-care (01) ==
LOC: HO.10HDL 09:24
PROVIDERS: Visit Provider Internal Medicine Endocrinology, Diabetes & Metabolism
DX: C73 Malignant neoplasm of thyroid gland (principal)
CPT/HCPCS: 36415; 84432; 84439; 84443; 86800

== ENCOUNTER 2023-01-16 07:41 | Outpatient (REF) | payer OTHER, SELFPAY ==
[2023-01-16 11:08] LABS: Free T4 (Free Thyroxine) 0.94 ng/dL (0.71-1.85); Thyroid Stimulating Hormone 0.04 uIU/mL (0.32-4.0)
== END 2023-01-16 07:42 | disposition home or self-care (01) ==
LOC: HO.10HDL 07:41
PROVIDERS: Visit Provider Internal Medicine Endocrinology, Diabetes & Metabolism
DX: C73 Malignant neoplasm of thyroid gland (principal)
CPT/HCPCS: 36415; 84439; 84443

== ENCOUNTER 2023-02-08 07:46 | Outpatient (REF) | payer OTHER, SELFPAY ==
--- NOTE | ~2023-02-08 | US_ITS ---
EXAMINATION: US SOFT TISSUE NECK CLINICAL INFORMATION: Status post thyroidectomy. COMPARISON: None available. TECHNIQUE: Ultrasound of the neck soft tissues is performed with high- frequency landrum-scale imaging and color Doppler. FINDINGS: THYROID BED: Prior thyroidectomy. No residual thyroid tissue demonstrated in the thyroid bed. No cystic or solid nodules demonstrated in the thyroid bed. RIGHT NECK SOFT TISSUES: Scattered architecturally normal nodes are present. The nodes show normal fatty hilus, normal cortical thickness, and no cystic change or calcification. No abnormal color flow. The largest nodes are as follows: Posterior to right ear: 0.7 x 0.2 x 0.6 cm. Abnormal with absent fatty hilum. LEFT NECK SOFT TISSUES: Scattered architecturally normal nodes are present. The nodes show normal fatty hilus, normal cortical thickness, and no cystic change or calcification. No abnormal color flow. The largest nodes are as follows: Level 3: 1.6 x 0.2 x 1.6 cm. Abnormal with absent fatty hilum. Level 5B: 0.8 x 0.1 x 0.4 cm. Abnormal with absent fatty danni. US/US soft tiss head and/or neck IMPRESSION: 1. Status post thyroidectomy. No residual thyroid tissue. 2. Bilateral cervical lymph nodes. All lymph nodes appear morphologically abnormal without fatty danni although they are quite small. If clinically indicated, further evaluation of the neck soft tissues and nodes may be performed with CT scan with intravenous contrast.
== END 2023-02-08 07:47 | disposition home or self-care (01) ==
LOC: HO.US 07:46
PROVIDERS: PCP Internal Medicine; Visit Provider Internal Medicine Endocrinology, Diabetes & Metabolism
DX: C73 Malignant neoplasm of thyroid gland (principal)
CPT/HCPCS: 76536

== ENCOUNTER 2023-02-14 08:15 | Outpatient (AMB) | payer OTHER, SELFPAY ==
--- NOTE | 2023-02-14 08:27 | MHC.OFFVIS ---
Intake Vital Signs 02/14/23 08:28 Height 5 ft 4 in Weight 102 lb 4.712 oz BMI 17.6 BP 126/84 Blood Pressure Location Lt brachial Position Sitting Pulse 68 Pulse Source Pulse Oximeter Intake Visit Reasons: Thyroid cancer-confirmed Intake Note: Patient present today for Thyroid cancer follow up visit. Technology Sales Consultant Required: No Accompanied by: Self / Same As Patient Allergies No Known Allergies Allergy (Verified 10/14/22 09:49) Medication List - Last Reconciled 02/14/23 by Gabriel Gibbons MD calcium citrate-vitamin D3 315 mg-6.25 mcg (250 unit) 2 tabs PO BID cholecalciferol (vitamin D3) 25 mcg PO DAILY levothyroxine 50 mcg PO DAILY HPI HPI Comments History of Present Illness Details 58 YO Female with no significant PMHx who is seen in F/U for papillary thyroid cancer. She was found to have a multinodular thyroid and underwent FNA biopsy of her isthmus 1.1 cm thyroid nodule 01/31/2022 with cytology malignant (bethesda category ), consistent with papillary thyroid carcinoma. She was subsequently referred to Endocrinology. She then underwent a total thyroidectomy with Dr. Walker 05/24/2022. Surgical path revealed 1.5 cm unifocal papillary thyroid carcinoma, tall cell type. No angioinvasion, no lymphatic invasion, no perineural invasion or extrathyroidal extension. Margins were uninvolved. There were 2/4 lymph nodes positive for disease. This was [id number]. Postoperatively she was started on levothyroxine 88 mcg PO daily. She received I 131 therapy 100 mCi on 07/06/2022. Post total body scan showed no visible uptake She denies any symptoms of hyper or hypothyroidism. She denies any family history of thyroid cancer. She denies any personal history of radiation to the head or the neck. Labs: Laboratory Tests 06/29/22 06/29/22 08:55 08:55 TSH 0.05 L Free T4 1.30 PTH Intact 22 Calcium (PTH Intac t) 8.9 . She is currently on 50 mcg levothyroxine with dose reduced on 01/16/2023 do suppressed TSH. Feels tired . [facility] Medical History Patient denies medical problems Thyroid cancer Vitamin D deficiency Surgical History Hx of total thyroidectomy Family History Paternal Grandmother Lung cancer Father No known health problems Mother Abnormal thyroid biopsy Social History Alcohol intake: never Patient Tobacco Use Status: Never used Tobacco Physical Exam Vital Signs: Last Vital Signs Pulse 68 02/14/23 08:28 BP 126/84 02/14/23 08:28 BMI result Body Mass Index 17.6 Const Other: Healed scar status post thyroidectomy. There is the presence of periauricular lymph node superficial palpable Assessment & Plan Assessment & Plan (1) Thyroid cancer: Code(s): C73 - Malignant neoplasm of thyroid gland Plan: This is a 57-year-old female with a history of papillary cancer status post total thyroidectomy Surgical path revealed 1.5 cm unifocal papillary thyroid carcinoma, tall cell type. No angioinvasion, no lymphatic invasion, no perineural invasion or extrathyroidal extension. Margins were uninvolved. There were 2/4 lymph nodes positive for disease. This was [id number]. She underwent radioactive iodine therapy in August of 2022. Recent post-treatment total body scan showed the absence of any iodine avid distant disease. She is currently on 50 mcg levothyroxine. She feels fatigued but no other symptoms of hypothyroidism or hyperthyroidism. TSH remains suppressed on small doses levothyroxine Plan is to recheck TSH, free T4 with thyroglobulin. With keep TSH on low normal side. I am a big concerned that her TSH is suppressed on small doses of levothyroxine. If TSH remains suppressed, may hold levothyroxine to see if there is endogenous production of levothyroxine causing hyperthyroidism. Will obtain neck ultrasound report when it is available . Neck ultrasound shows suspicious lymph node or TSH remains suppressed, may send to Dee Bello MD at [facility] for 2nd opinion. Orders: Orders Thyroglobulin Antibodies Today C73 - Malignant neoplasm of thyroid gland Thyroglobulin Tumor Marker Today C73 - Malignant neoplasm of thyroid gland Coding Level of Care Code Est Pt Level 3 (43325) Diagnoses Thyroid cancer C73
[2023-02-14 08:28] VITALS: BP 126/84; PULSE 68; BMI 17.6
== END 2023-02-14 09:01 | disposition home or self-care (01) ==
PROVIDERS: PCP Internal Medicine; Visit Provider Internal Medicine Endocrinology, Diabetes & Metabolism
DX: C73 Malignant neoplasm of thyroid gland (principal)
CPT/HCPCS: 99213

== ENCOUNTER → 2023-02-14 08:15 | Outpatient (BNVA) | payer OTHER, SELFPAY | PROVIDERS: PCP Internal Medicine; Visit Provider Internal Medicine Endocrinology, Diabetes & Metabolism | DX: C73 Malignant neoplasm of thyroid gland (principal); E89.0 Postprocedural hypothyroidism | CPT/HCPCS: 99212 ==

== ENCOUNTER 2023-02-14 09:05 | Outpatient (REF) | payer OTHER, SELFPAY ==
[2023-02-14 12:12] LABS: Free T4 (Free Thyroxine) 0.79 ng/dL (0.71-1.85); Thyroid Stimulating Hormone 1.66 uIU/mL (0.32-4.0)
[2023-02-15 09:38] LABS: Thyroglobulin Antibodies 2 IU/mL (< or = 1)
[2023-02-22 23:09] LABS: Thyroglobulin Antibody 3 IU/mL (<=1); Thyroglobulin LC/MS/MS <0.4 ng/mL (Athyrotic: <0)
== END 2023-02-14 09:06 | disposition home or self-care (01) ==
LOC: HO.10HDL 09:05
PROVIDERS: Visit Provider Internal Medicine Endocrinology, Diabetes & Metabolism
DX: C73 Malignant neoplasm of thyroid gland (principal)
CPT/HCPCS: 36415; 84432; 84439; 84443; 86800

== ENCOUNTER 2023-06-05 08:16 | Outpatient (AMB) | payer OTHER, SELFPAY ==
[2023-06-05 08:18] VITALS: BP 130/84; PULSE 54; BMI 18.4
--- NOTE | 2023-06-05 08:18 | MHC.OFFVIS ---
Vital Signs 06/05/23 08:18 Height 5 ft 4 in Weight 107 lb 5.842 oz BMI 18.4 BP 130/84 Blood Pressure Location Lt brachial Position Sitting Pulse 54 Pulse Source Pulse Oximeter Intake Visit Reasons: Thyroid cancer-confirmed Intake Note: Patient presents today for Thyroid Cancer follow up. Canning Machine Operator Required: No Accompanied by: Self / Same As Patient Allergies No Known Allergies Allergy (Verified 06/05/23 08:21) Medication List - Last Reconciled 06/05/23 by Gabriel Gibbons MD calcium citrate-vitamin D3 315 mg-6.25 mcg (250 unit) 2 tabs PO BID cholecalciferol (vitamin D3) 25 mcg PO DAILY levothyroxine 50 mcg PO DAILY omega 4-[id number]-fish oil 1,000 mg (120 mg-180 mg) (Fish Oil) 1 cap PO DAILY HPI Comments Details: 58 YO Female with no significant PMHx who is seen in F/U for papillary thyroid cancer. She was found to have a multinodular thyroid and underwent FNA biopsy of her isthmus 1.1 cm thyroid nodule 01/31/2022 with cytology malignant (bethesda category ), consistent with papillary thyroid carcinoma. She was subsequently referred to Endocrinology. She then underwent a total thyroidectomy with Dr. Walker 05/24/2022. Surgical path revealed 1.5 cm unifocal papillary thyroid carcinoma, tall cell type. No angioinvasion, no lymphatic invasion, no perineural invasion or extrathyroidal extension. Margins were uninvolved. There were 2/4 lymph nodes positive for disease. This was [id number]. Postoperatively she was started on levothyroxine 88 mcg PO daily. She received I 131 therapy 100 mCi on 07/06/2022. Post total body scan showed no visible uptake She denies any symptoms of hyper or hypothyroidism. She denies any family history of thyroid cancer. She denies any personal history of radiation to the head or the neck. Labs: Laboratory Tests 06/29/22 06/29/22 08:55 08:55 TSH 0.05 L Free T4 1.30 PTH Intact 22 Calcium (PTH Intact) 8.9 . She is currently on 50 mcg levothyroxine . To see Dr. Bello on 09/01/2023 [facility] Medical History Patient denies medical problems Thyroid cancer Vitamin D deficiency Surgical History Hx of total thyroidectomy Family History Paternal Grandmother Lung cancer Father No known health problems Mother Abnormal thyroid biopsy Social History Alcohol intake: never Patient Tobacco Use Status: Never used Tobacco Physical Exam Vital Signs: Last Vital Signs Pulse 54 06/05/23 08:18 BP 130/84 06/05/23 08:18 BMI result Body Mass Index 18.4 Const Other: Healed scar status post thyroidectomy. There is the presence of periauricular lymph node superficial palpable Assessment & Plan Assessment & Plan (1) Thyroid cancer: Code(s): C73 - Malignant neoplasm of thyroid gland Category: Medical Plan: This is a 57-year-old female with a history of papillary cancer status post total thyroidectomy Surgical path revealed 1.5 cm unifocal papillary thyroid carcinoma, tall cell type. No angioinvasion, no lymphatic invasion, no perineural invasion or extrathyroidal extension. Margins were uninvolved. There were 2/4 lymph nodes positive for disease. This was [id number]. She underwent radioactive iodine therapy in August of 2022. Recent post-treatment total body scan showed the absence of any iodine avid distant disease. She is currently on 50 mcg levothyroxine. She feels fatigued but no other symptoms of hypothyroidism or hyperthyroidism. Clinically and biochemically euthyroid on 50 ug of levothyroxine with undetectable Tg but abnl LN on neck US Plan is to continue current therapy . Since Neck ultrasound shows suspicious lymph node or TSH remains suppressed, may send to Dee Bello MD at [facility] for 2nd opinion. Medications: Refilled levothyroxine 50 mcg PO DAILY 90 tabs 4RF
== END 2023-06-05 08:48 | disposition home or self-care (01) ==
PROVIDERS: PCP Internal Medicine; Visit Provider Internal Medicine Endocrinology, Diabetes & Metabolism
DX: C73 Malignant neoplasm of thyroid gland (principal)
CPT/HCPCS: 99213

== ENCOUNTER → 2023-06-05 08:16 | Outpatient (BNVA) | payer OTHER, SELFPAY | PROVIDERS: PCP Internal Medicine; Visit Provider Internal Medicine Endocrinology, Diabetes & Metabolism | DX: C73 Malignant neoplasm of thyroid gland (principal) | CPT/HCPCS: 99212 ==

== ENCOUNTER → 2023-10-19 13:56 | Outpatient (RCR) | payer OTHER, SELFPAY ==
[2020-07-09 14:28] VITALS: BP 120/79; PULSE 80; RESP 12; TEMP 36.9; O2SAT 96; BMI 16.5
--- NOTE | 2020-07-09 14:43 | PM.HEMONCCN ---
Subjective - Subjective Chief complaint: Consult for: Pancytopenia. Patient: new to practice Consult date: 07/09/20 Primary Care Provider: Jie Booth MD Medical Summary: DIAGNOSIS: PANCYTOPENIA. HPI - Consult Narrative Reason for consult: Consult for: Pancytopenia. Narrative: Carlos Castellanos is a pleasant 55 year old lady, who was seen in the ER on 07/02. She has no significant past medical history presented with central chest pain x1 year. She states the pain is intermittent and she also wakes up with bilateral hand numbness and cramping, left more than right. She is also complaining of fatigue, dizziness and headache. EKG is NSR with 72 BPM, will get labs cardiac labs, if everything is normal. Chest x-ray was unremarkable. Reevaluation: Labs show a pancytopenia with wbc 3.8, rbc 3.91 and platelets 130. ROS: She has been extremely fatigued, for 1 year. However she has been more tired over the past 7 days. Weakness is worst in the morning. He denies fever nor chills. Appetite is not good. She lost 10 lb in the past 6 months. She does complain of dizziness. She has numbness behind her head radiating into her jaw. She gets chest pain. She is well potato shins. Her breathing is not good. She was seen in the emergency room on 07/02. Everything checked out fine. That is when she was noted to be pancytopenic. She denies abdominal pain, she has nausea but no vomiting heartburn indigestion. Bowels are working. She is constipated. Sometimes she has fresh blood in the stools related to hemorrhoids. no dysuria no hematuria. She does complain of joint pains. She gets leg cramps. Sometimes her joints get locked. She feels depressed. Sometimes she gets a rash in her knees. She has easy bruising. Family history: Paternal grandma had lung cancer. Denies hematological problems in the family. Social history: She used to work in a restaurant. She is . Has 2 children. She denies smoking. Denies drug use. Denies alcohol. Review of Systems - Constitutional Reports system reviewed and no additional complaints, except as documented, Reports lack of energy, Reports malaise, Reports weight loss - Eyes Reports system reviewed and no additional complaints, except as documented - ENT Reports system reviewed and no additional complaints, except as documented - Cardiovascular Reports system reviewed and no additional complaints, except as documented, Reports chest pain, Reports leg pain with activity, Reports lightheadedness, Reports shortness of breath - Respiratory Reports no additional respiratory complaints - Gastrointestinal Reports system reviewed and no additional complaints, except as documented, Reports constipation, Reports nausea - Genitourinary Reports no additional female genitourinary complaints - Musculoskeletal Reports system reviewed and no additional complaints, except as documented, Reports joint pain - Integumentary/Breasts Skin/Breast: Reports no additional skin complaints - Neurologic Reports system reviewed and no additional complaints, except as documented - Psychiatric Reports system reviewed and no additional complaints, except as documented - Endocrine Reports no additional endocrine complaints - Hematologic/Lymphatic Reports system reviewed and no additional complaints, except as documented - Allergic/Immunologic Reports system reviewed and no additional complaints, except as documented Oncology Screenings - ECOG Performance Status ECOG Performance Status: 0 [facility] Medical History: Medical History (Last Reviewed 07/09/20 @ 14:29 by Sunitha Mccauley) Patient denies medical problems Functional capacity: independent ambulation Patient : No Family History: Family History (Last Updated 07/09/20 @ 14:29 by Sunitha Mccauley) Paternal Grandmother Lung cancer Social History: Social History (Last Updated 07/09/20 @ 14:30 by Sunitha Mccauley) Alcohol History: Alcohol intake: never Alcohol History Details: Alcohol intake frequency: does not drink Tobacco History: Patient Tobacco Use Status: Never used Tobacco Home Medications and Allergies Allergies Allergy/AdvReac Type Severity Reaction Status Date / Time No Known Allergies Allergy Unverified 10/31/19 17:50 Physical Exam Vital signs: Vital Signs Temp 98.5 F 07/09/20 14:28 Pulse 80 07/09/20 14:28 Resp 12 07/09/20 14:28 BP 120/79 07/09/20 14:28 Pulse Ox 96 07/09/20 14:28 Intake & Output 07/08/20 07/09/20 07/09/20 18:59 06:59 18:59 Other: Weight 43.6 kg Weight in Grams 62085 Weight 43.6 kg - Constitutional Present: no acute distress - Routine HEENT Exam Head: Present: normal inspection ENT: Present: mucous membranes moist - Routine Neck Exam Present: supple Hem/Onc Consult Result - Labs CBC & Chem 7: 07/09/20 15:19 Assessment and Plan (1) Pancytopenia Status: Acute DATABASE: 07/02: CMP: Lytes: WNL, BUN 21, MOTION PICTURE CAMERA LENS TECHNICIAN 0.78, alb 4.6, Lorenzo 8.8. LFTs: 0.9/79/32/31. This is a pleasant 55-year-old lady, with history of pancytopenia. Review of her labs in the computer reveals the following trend: 03/09/2019: WBC 7.4. PLT 173. 04/16/2019: WBC 3.5. PLT 146. 07/02/2020: WBC 3.8 PLT 130. DIFFERENTIAL DIAGNOSIS: 1. AN INFECTIOUS PROBLEM: Could be HIV versus hepatitis. 2. UNDERLYING COLLAGEN VASCULAR DISORDER: Rheumatoid arthritis versus SLE. 3. VITAMIN B12/FOLATE DEFICIENCY: Is a possibility. 4. MYELO INFILTRATIVE DISORDER: MDS versus multiple myeloma. PLAN: I will proceed with further evaluation. Will check HIV screen: negative. Check hepatitis profile: Negative. Checked RA:<15 and LILLIAN: Negative. Check B12:578, and folate levels: 18.5. Check LDH and SIEP: No monoclonal protein detected. If the above workup does not to prove fruitful will proceed with a bone marrow exam for further evaluation. She will return in 3 months for a follow-up. All her and her 's questions were answered to their satisfaction. Thank you, CC:
--- NOTE | 2020-07-09 15:22 | MHC.HEMONCMA ---
Pt present for consult on low white blood cell count. History reviewed, labs drawn and pt to return in 3 months.
[2020-07-09 15:50] LABS: Baso%MD 0.2 %; Eos%MD 1.7 %; Hematocrit 40.4 % (37-47); Hemoglobin 13.1 g/dl (12.0-16.0); IG%MD 0.5 %; Lymph%MD 25.1 %; Mean Corpuscular HGB Conc 32.4 g/dl (31.0-35.0); Mean Corpuscular Hemoglobin 30.3 pg (27.0-33.0); Mean Corpuscular Volume 93.3 fL (80-98); Mean Platelet Volume 10.4 fL (9.4-12.3); Neut%MD 67.5 %; Platelet Count 146 X10*3/uL (160-400); Red Blood Count 4.33 X10*6/uL (4.20-5.50); Red Cell Distribution Width 13.3 % (11.0-16.0)
[2020-07-09 16:19] LABS: Lactate Dehydrogenase 176 U/L (122-220); Rheumatoid Factor < 15.0 IU/mL (<15.0)
[2020-07-09 16:34] LABS: Atypical Lymph Absolute Manual 0.1 x10*3/uL; Atypical Lymphs Percent Manual 2 % (0-6); Band Neutrophils Percent 0 % (3-5); Basophils Percent Manual 1 % (0-1); Eosinophils Absolute Manual 0.2 X10*3/UL (0.0-0.8); Eosinophils Percent Manual 4 % (0-4); Lymphocytes Percent Manual 24 % (20-40); Monocytes Absolute Manual 0.1 X10*3/uL (0.0-1.2); Monocytes Percent Manual 3 % (2-11); Neutrophils Absolute Manual 2.6 X10*3/uL (2.2-7.9); Neutrophils Percent Manual 66 % (45-73)
[2020-07-09 16:40] LABS: Platelet Estimate NORMAL (NORMAL); Platelet Morphology Comment NORMAL
[2020-07-09 16:41] LABS: RBC Morphology NORMAL
[2020-07-09 17:02] LABS: Folate 18.5 ng/mL (> or = 4.0); Vitamin B12 578 pg/mL (200-900)
[2020-07-10 08:27] LABS: HIV AB/AG Nonreactive (Nonreactive); HIV Num 1 0.08 S/CO (0.00-0.99)
[2020-07-10 13:37] LABS: Anti Nuclear Antibody Screen NEGATIVE (NEGATIVE)
[2020-07-12 01:31] LABS: IgA 89 mg/dL (47-310); IgG 772 mg/dL (600-1640); IgM 99 mg/dL (50-300)
== END | disposition home or self-care (01) ==
LOC: HO.ONC 07-09 14:18
PROVIDERS: PCP Internal Medicine; Visit Provider Internal Medicine Medical Oncology
DX: D61.818 Other pancytopenia (principal)
CPT/HCPCS: 36415; 82607; 82746; 82784; 83615; 85007; 85027; 86038; 86039; 86334; 86431; 87389; 99204

== ENCOUNTER 2023-11-13 07:53 | Outpatient (AMB) | payer OTHER, SELFPAY ==
--- NOTE | 2023-11-13 07:54 | A.OFFVIS_ITS ---
Vital Signs 11/13/23 07:55 Height 5 ft 4 in Weight 105 lb 13.15 oz BMI 18.2 BP 100/68 Blood Pressure Location Rt brachial Position Sitting Pulse 68 Pulse Source Pulse Oximeter Intake Visit Reasons: f/u thyoid cancer/ Conf Intake Note: Patient present for Thyroid Cancer follow up. 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 She was found to have a multinodular thyroid and underwent FNA biopsy of her isthmus 1.1 cm thyroid nodule 01/31/2022 with cytology malignant (bethesda category ), consistent with papillary thyroid carcinoma. She was subsequently referred to Endocrinology. She then underwent a total thyroidectomy with Dr. Walker 05/24/2022. Surgical path revealed 1.5 cm unifocal papillary thyroid carcinoma, tall cell type. No angioinvasion, no lymphatic invasion, no perineural invasion or extrathyroidal extension. Margins were uninvolved. There were 2/4 lymph nodes positive for disease. This was [id number]. Postoperatively she was started on levothyroxine 88 mcg PO daily. She received I 131 therapy 100 mCi on 07/06/2022. Post total body scan showed no visible uptake She denies any symptoms of hyper or hypothyroidism. She denies any family history of thyroid cancer. She denies any personal history of radiation to the head or the neck. Labs: Laboratory Tests 06/29/22 06/29/22 08:55 08:55 TSH 0.05 L Free T4 1.30 PTH Intact 22 Calcium (PTH Intact) 8.9 . She is currently on 50 mcg levothyrox[address] . Saw Dr. Bello and had negative neck US . Levothyroxine dose was increased 88 mcg PFSH Medical History Patient denies medical problems Thyroid cancer Vitamin D deficiency Surgical History Hx of total thyroidectomy Family History Paternal Grandmother Lung cancer Father No known health problems Mother Abnormal thyroid biopsy Social History Alcohol intake: never Patient Tobacco Use Status: Never used Tobacco Physical Exam Vital Signs: Last Vital Signs Pulse 68 11/13/23 07:55 BP 100/68 11/13/23 07:55 BMI result Body Mass Index 18.2 Const Other: Healed scar status post thyroidectomy. There is the presence of periauricular lymph node superficial palpable Assessment & Plan Assessment & Plan (1) Thyroid cancer: Code(s): C73 - Malignant neoplasm of thyroid gland Category: Medical Plan: This is a 58-year-old female with a history of papillary cancer status post total thyroidectomy Surgical path revealed 1.5 cm unifocal papillary thyroid carcinoma, tall cell type. No angioinvasion, no lymphatic invasion, no perineural invasion or extrathyroidal extension. Margins were uninvolved. There were 2/4 lymph nodes positive for disease. This was [id number]. She underwent radioactive iodine therapy in August of 2022. Recent post-treatment total body scan showed the absence of any iodine avid distant disease. She is currently on 88 mcg levothyroxine. She feels fatigued but no other symptoms of hypothyroidism or hyperthyroidism. Clinically on 88 ug of levothyroxine with negative neck ultrasound at [facility] by Dr. Bello Plan is to recheck TSH and free T4 and adjust levothyroxine accordingly. Will have patient follow up with Dr. Lagos who has expertise in neck ultrasound Coding Level of Care Code Est Pt Level 3 (12058) Diagnoses Thyroid cancer C73
[2023-11-13 07:55] VITALS: BP 100/68; PULSE 68; BMI 18.2
== END 2023-11-13 08:11 | disposition home or self-care (01) ==
PROVIDERS: PCP Internal Medicine; Visit Provider Internal Medicine Endocrinology, Diabetes & Metabolism
DX: C73 Malignant neoplasm of thyroid gland (principal)
CPT/HCPCS: 99213

== ENCOUNTER → 2023-11-13 07:53 | Outpatient (BNVA) | payer OTHER, SELFPAY | PROVIDERS: PCP Internal Medicine; Visit Provider Internal Medicine Endocrinology, Diabetes & Metabolism | DX: C73 Malignant neoplasm of thyroid gland (principal) | CPT/HCPCS: 99212 ==

== ENCOUNTER 2023-11-15 08:57 | Outpatient (REF) | payer OTHER, SELFPAY ==
[2023-11-15 11:44] LABS: Free T4 (Free Thyroxine) 1.31 ng/dL (0.71-1.85); Thyroid Stimulating Hormone 0.12 uIU/mL (0.32-4.0)
== END 2023-11-15 08:58 | disposition home or self-care (01) ==
LOC: HO.10HDL 08:57
PROVIDERS: Visit Provider Internal Medicine Endocrinology, Diabetes & Metabolism
DX: C73 Malignant neoplasm of thyroid gland (principal)
CPT/HCPCS: 36415; 84439; 84443

== ENCOUNTER 2023-12-29 08:59 | Outpatient (REF) | payer OTHER, SELFPAY ==
[2023-12-29 11:11] LABS: Free T4 (Free Thyroxine) 1.18 ng/dL (0.71-1.85); Thyroid Stimulating Hormone 0.36 uIU/mL (0.32-4.0)
== END 2023-12-29 09:00 | disposition home or self-care (01) ==
LOC: HO.10HDL 08:59
PROVIDERS: Visit Provider Internal Medicine Endocrinology, Diabetes & Metabolism
DX: C73 Malignant neoplasm of thyroid gland (principal)
CPT/HCPCS: 36415; 84439; 84443

== ENCOUNTER 2024-05-08 08:12 | Outpatient (REF) | payer OTHER, SELFPAY ==
[2024-05-08 11:17] LABS: Free T4 (Free Thyroxine) 1.15 ng/dL (0.71-1.85); Thyroid Stimulating Hormone 0.39 uIU/mL (0.32-4.0)
[2024-05-12 07:54] LABS: Thyroglobulin Antibody <1 IU/mL (<=1); Thyroglobulin Level <0.1 ng/mL
== END 2024-05-08 08:13 | disposition home or self-care (01) ==
LOC: HO.10HDL 08:12
PROVIDERS: Visit Provider Internal Medicine Endocrinology, Diabetes & Metabolism
DX: C73 Malignant neoplasm of thyroid gland (principal)
CPT/HCPCS: 36415; 84432; 84439; 84443; 86800

== ENCOUNTER 2024-05-13 07:34 | Outpatient (AMB) | payer OTHER, SELFPAY ==
[2024-05-13 07:36] VITALS: BP 108/68; PULSE 74; O2SAT 100; BMI 17.8
--- NOTE | 2024-05-13 07:36 | A.OFFVIS_ITS ---
Vital Signs 3 05/13/24 07:36 Height 5 ft 4 in Weight 103 lb 9.876 oz BMI 17.8 BP 108/68 Blood Pressure Location Rt brachial Position Sitting Pulse 74 Pulse Source Pulse Oximeter Pulse Oximetry (%) 100 Oxygen Delivery Method Room Air Intake Visit Reasons: thyroid cancer Intake Note: Patient present here today to re-establish treatment for Thyroid Cancer, last seen by DR Gabriel Gibbons: [employer] Officer Required: No Accompanied by: Self / Same As Patient Allergies No Known Allergies Allergy (Verified 05/13/24 07:38) Medication List - Last Reconciled 05/13/24 by Asia Lagos MD calcium citrate-vitamin D3 315 mg-6.25 mcg (250 unit) 2 tabs PO BID cholecalciferol (vitamin D3) 25 mcg PO DAILY levothyroxine 75 mcg PO DAILY NS omega 0-cpi-rvp-fish oil 1,000 (120-180) mg (Fish Oil) 1 cap PO DAILY HPI Comments Details: 59-year-old female here today for follow up of papillary thyroid cancer status post [facility] 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 No angioinvasion, no lymphatic invasion, no pearly neural invasion, no extrathyroidal extension, margins negative. 2/4 lymph nodes positive for disease. AJCC stage I pT1b N1a. JAVIER intermediate risk of recurrence. Status post 102 mCi of I 131 therapy on 07/06/2022. Currently excellent response to therapy. 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 No angioinvasion, no lymphatic invasion, no pearly neural invasion, no extrathyroidal extension, margins negative. 2/4 lymph nodes positive for disease. AJCC stage I pT1b N1a. JAVIER intermediate risk of recurrence. 09/05/2022: Status post I 131 therapy 102 mCi 08/31/2022: TSH greater than 100, free T4 1.20, TG less than 0.4 by LC MS, TG antibody 10 09/09/2022: Whole-body scan showed residual local disease in the neck, did not show any evidence of metastatic disease. 02/08/2023: Ultrasound neck showed normal-appearing lymph nodes when I reviewed the images myself, even though they were commented on as abnormal in the report. 09/01/2023: TSH 16.62, free T4 0.85, TG 1.7, TG antibody to 09/2023: Patient saw Dr. Dee Bello at [facility] with ultrasound neck negative for any abnormal lymph nodes. No family history of thyroid cancer, no personal history of head or neck radiation. Interval history 05/08/2024: TSH 0.39, free T4 1.15, TG less than 0.1, TG antibody less than 1 Currently denies any palpitations, diarrhea, heat intolerance, tremors Takes levothyroxine 75 mcg , good administration, adherent to medicine Physical exam General: sitting comfortably in no acute distress HEENT: normocephalic/atraumatic, Neck: supple, symmetrical, no palpable lymph nodes or masses Cardiac: normal heart sounds Pulm: normal breath sounds B/L, no added breath sounds Abd: not distended, no tenderness Extremities: no edema, no signs of myxedema Laboratory Tests 03/10/22 06/29/22 07/20/22 13:36 08:55 08:50 TSH 0.85 0.05 L 0.03 L Free T4 1.01 1.30 1.28 Thyroglobulin LC-MS/MS 2.8 H 0.8 H Thyroglobulin Thyroglobulin Antibody 16 H 14 H 08/31/22 11/28/22 01/16/23 08:00 09:30 07:45 TSH > 100.00 H 0.01 L 0.04 L Free T4 1.20 1.16 0.94 Thyroglobulin LC-MS/MS <0.4 <0.4 Thyroglobulin Thyroglobulin Antibody 10 H 4 H 02/14/23 11/15/23 12/29/23 09:10 09:00 09:03 TSH 1.66 0.12 L 0.36 Free T4 0.79 1.31 1.18 Thyroglobulin LC-MS/MS <0.4 Thyroglobulin Thyroglobulin Antibody 3 H 05/08/24 08:15 TSH 0.39 Free T4 1.15 Thyroglobulin LC-MS/MS Thyroglobulin <0.1 Thyroglobulin Antibody <1 US SOFT TISSUE NECK 02/08/23 CLINICAL INFORMATION: Status post thyroidectomy. COMPARISON: None available. TECHNIQUE: Ultrasound of the neck soft tissues is performed with high- frequency landrum-scale imaging and color Doppler. FINDINGS: THYROID BED: Prior thyroidectomy. No residual thyroid tissue demonstrated in the thyroid bed. No cystic or solid nodules demonstrated in the thyroid bed. RIGHT NECK SOFT TISSUES: Scattered architecturally normal nodes are present. The nodes show normal fatty hilus, normal cortical thickness, and no cystic change or calcification. No abnormal color flow. The largest nodes are as follows: Posterior to right ear: 0.7 x 0.2 x 0.6 cm. Abnormal with absent fatty hilum. LEFT NECK SOFT TISSUES: Scattered architecturally normal nodes are present. The nodes show normal fatty hilus, normal cortical thickness, and no cystic change or calcification. No abnormal color flow. The largest nodes are as follows: Level 3: 1.6 x 0.2 x 1.6 cm. Abnormal with absent fatty hilum. Level 5B: 0.8 x 0.1 x 0.4 cm. Abnormal with absent fatty danni. US/US soft tiss head and/or neck IMPRESSION: 1. Status post thyroidectomy. No residual thyroid tissue. 2. Bilateral cervical lymph nodes. All lymph nodes appear morphologically abnormal without fatty danni although they are quite small. If clinically indicated, further evaluation of the neck soft tissues and nodes may be performed with CT scan with intravenous contrast. [facility] Medical History (Updated 05/13/24 @ 08:22 by Asia Lagos MD) Hypothyroidism Vitamin D deficiency Thyroid cancer Patient denies medical problems Surgical History Hx of total thyroidectomy Family History Paternal Grandmother Lung cancer Father No known health problems Mother Abnormal thyroid biopsy Social History Alcohol intake: never Patient Tobacco Use Status: Never used Tobacco Physical Exam Vital Signs: Last Vital Signs Pulse 74 05/13/24 07:36 BP 108/68 05/13/24 07:36 Pulse Ox 100 05/13/24 07:36 Oxygen Delivery Method Room Air 05/13/24 07:36 BMI result Body Mass Index 17.8 Assessment & Plan Assessment & Plan (1) Thyroid cancer: Code(s): C73 - Malignant neoplasm of thyroid gland Category: Medical Plan: 59-year-old female here today for follow up of papillary thyroid cancer status post total thyroidectomy 05/24/[address] Martha Walker [facility] with pathology showing 1.5 cm unifocal papillary thyroid carcinoma, tall cell she. No angioinvasion, no lymphatic invasion, no pearly neural invasion, no extrathyroidal extension, margins negative. 2/4 lymph nodes positive for disease. AJCC stage I pT1b N1a. JAVIER intermediate risk of recurrence. Status post 102 mCi of I 131 therapy on 07/06/2022. Whole-body scan did show residual disease in the neck, however no evidence of metastatic disease. Subsequently patient has had declining TG antibodies, with most recent labs from April 2024 showing TG antibody is now negative. Thyroglobulin levels also most recently are undetectable, these are unstimulated levels by both radial immunoassay in LC MS. Most recently labs done in April 2024 showed non stimulated TG less than 0.1. Last ultrasound neck done in [place] in September 2024 was also negative for any abnormal lymph nodes. Currently excellent response to therapy. Given excellent Response to therapy goal TSH 0.5-2. Her TSH is pretty close to goal last done 05/08/24: 0.39. Plan: -continue levothyroxine 75 mcg daily -ultrasound neck ordered for September 2024 with follow up in October 2024 -ordered TSH, free T4, TG and TG antibodies to be done prior to next appointment in October 2024 (2) Hypothyroidism: Code(s): E03.9 - Hypothyroidism, unspecified Category: Medical Qualifiers: Hypothyroidism type: postoperative Qualified Code(s): E89.0 - Postprocedural hypothyroidism Plan: Given excellent Response to therapy goal TSH 0.5-2. Her TSH is pretty close to goal last done 05/08/24: 0.39. Plan: -continue levothyroxine 75 mcg daily -ordered TSH, free T4, TG and TG antibodies to be done prior to next appointment in October 2024 Plan I spent 30 minutes in reviewing the record, seeing the patient and documenting in the medical record. Orders: Orders 2 US soft tiss head and/or neck 09/25/24 C73 - Malignant neoplasm of thyroid gland Thyroid Stimulating Hormone 10/02/24 C73 - Malignant neoplasm of thyroid gland Free T4 (Free Thyroxine) 10/02/24 C73 - Malignant neoplasm of thyroid gland Thyroglobulin Antibodies 10/02/24 C73 - Malignant neoplasm of thyroid gland Thyroglobulin Tumor Marker 10/02/24 C73 - Malignant neoplasm of thyroid gland Medications: Refilled 2 levothyroxine 75 mcg PO DAILY 90 tabs 3RF NS Patient Instructions: Continue levothyroxine 75 mcg daily Do Us of the neck in September 2024, someone will call you to schedule this Do blood work 1-2 weeks prior to your appointment in October 2024 Follow up in Oct 2024 Coding Level of Care Code Est Pt Level 4 (33586) Complex EM visit Add On [id number] Diagnoses Thyroid cancer C73 Postoperative hypothyroidism E89.0 Hypothyroidism type: postoperative Time Spent (min) 30
== END 2024-05-13 08:07 | disposition home or self-care (01) ==
LOC: HO.ENCR 07:34
PROVIDERS: PCP Internal Medicine; Visit Provider Student in an Organized Health Care Education/Training Program
DX: C73 Malignant neoplasm of thyroid gland (principal); E89.0 Postprocedural hypothyroidism
CPT/HCPCS: 99214; G2211

== ENCOUNTER → 2024-05-13 07:34 | Outpatient (BNVA) | payer OTHER, SELFPAY | PROVIDERS: PCP Internal Medicine; Visit Provider Student in an Organized Health Care Education/Training Program | DX: E89.0 Postprocedural hypothyroidism (principal); Z85.850 Personal history of malignant neoplasm of thyroid | CPT/HCPCS: 99212 ==

== ENCOUNTER 2024-09-11 12:40 | Outpatient (REF) | payer OTHER, SELFPAY ==
--- NOTE | ~2024-09-11 | US_ITS ---
CLINICAL HISTORY: C73 - Malignant neoplasm of thyroid gland Exam: Ultrasound of the neck Comparison: None Findings: 7 static sonographic images were submitted for review, including transverse imaged labeled as neck level 1A, transverse right neck level 5A without/with measurement and Doppler, transverse images of the thyroid bed without and with Doppler. The submitted images demonstrate single elongated benign-appearing lymph node in the right neck level 5A, 7 x 2 x 5 mm with preserved fatty hilum and hilar pattern vascular flow. The demonstrated portion of the thyroid bed demonstrates no abnormal soft tissue. Per label stamper's note, all neck viktor levels were evaluated by the label stamper, but no additional office machines sales representative images were submitted and interpreting radiologist was not present during the exam. Impression: Limited sonographic images as stated above, subcentimeter morphologically benign-appearing lymph node in right neck level 5A. This document has been electronically signed by: Arabella Razo MD on 09/11/2024 17:15:55
--- OUTSIDE RECORDS SUMMARY | 2024-09-11 13:14 | XMS_ITS | Clinical Summary ---
Author Organization [facility] Address [address] [place] [phone] Phone Care Team Providers Care Rubber Belt Splicer Name Role Phone Lucy Gr MD Primary Care Prov ider Allergies Active Allergy Reactions Criticality Noted Date Comments Other 06/09/2022 [place] (Prunus Persica) 06/15/2022 Other reaction(s): Throat Itchy Medications levothyroxine (SYNTHROID, LEVOTHROID) 75 mcg tablet Take 1 tablet (75 mcg total) by mouth 1 (one) time each day. 11/15/2023 Active B complex tablet Take 1 tablet by mouth 1 (one) time each day. Active calcium carbonate (OS-TRISHA) 1250 mg (500 mg elemental calcium) chewable tablet Chew 1 tablet (1,250 mg total). Active cebmx-6r-xpy-epa -fish oil ([place]-3 Fish OiL) 300-1,000 mg capsule Take by mouth. Active Active Problems Problem Noted Date Diagnosed Date Other chest pain 04/15/2024 Assessment & Plan (04/15/2024 9:00 AM EST): Chest pain appears pleuritic. Pain has resolved without intervention. Her thyroid function was quite abnormal after thyroid cancer surgery. Is unclear whether that played a role to her symptom. Suggest her to walk at a faster pace and monitor symptom. At the meantime, we will schedule a stress echo to make sure she does not have a pericardial problem and exclude ischemia giving her potential risk factor. Mitral regurgitation 03/29/2022 Overview (11/10/2023): Last Assessment & Plan: Mitral valve systolic murmur appears more prominent. We will repeat echocardiogram. Thyroid cancer (CMS/HCC V24, CMS/HCC V28) 2021 Weight loss 01/15/2021 Overview (11/10/2023): Last Assessment & Plan: I asked the patient to follow up with Dr. Emmy HOWELL for further evaluation of her weight loss. I also encouraged her to get her colonoscopy scheduled to ensure no obvious cause of her weight loss. Lump in thyroid 01/15/2021 Overview (11/10/2023): Last Assessment & Plan: Ultrasound ordered Palpitations 10/09/2020 Overview (11/10/2023): Last Assessment & Plan: No significant arrhythmia. We will continue watching symptoms. Assessment & Plan (04/15/2024 9:00 AM EST): symptom has mostly resolved. Will continue to monitor giving her thyroid dysfunction. Orders: ECG 12 lead Prediabetes 11/13/2018 Lactose intolerance 03/01/2017 Bilateral renal cysts 10/01/2014 Hematuria, microscopic 10/01/2014 Fibroid uterus 07/29/2014 Overview (11/10/2023): CT scan 05/13/13 Abnormal LFTs 07/29/2014 Overview (11/10/2023): Neg Hep B and C per transfer notes Encounters Date Type Department Care Team Description 08/01/2024 Telephone [facility] Surgery [facility] [address] [place] [address] Juan Pablo Maria MD Procedure 07/23/2024 Telephone Adult Medicine [address] [phone] Lucy Gr MD Spots and/or Floaters from Last 3 Months Immunizations Name Administration Dates Next Due Influenza Quadravalent, MDCK , 0.5ml, preservative free (Flucelvax) 6mo and older 12/02/2019 Influenza trivalent, with pr eservative (Fluzone; Afluria) 6mo and older 12/10/2014 Tdap Tetanus diptheria acell ular pertussis (Boostrix; Adacel) 7yo and older 12/10/2014 Surgical History Surgery Date Site/Laterality Comments OTHER SURGICAL HISTORY 10/06/2013 PROCEDURE: MAMMOGRAM COLONOSCOPY 07/17/2013 PROCEDURE: HISTORICAL COLONOSCOPY; COMMENT: small polyp descending colon; repeat 5 years OTHER SURGICAL HISTORY 05/24/2022 PROCEDURE: [facility] TOTAL/COMPLETE; COMMENT: Dr. Walker Medical History Medical History Date Comments Fibroid uterus 07/29/2014 DX:Fibroid uteru s; COMMENT: CT scan 05/13/13 History of colon polyps 07/29/2014 DX:Histo ry of colon polyps Abnormal LFTs 07/29/2014 DX:Abnormal LFTs ; COMMENT: Neg Hep B and C per transfer notes History of kidney stones 07/29/2014 DX:Hist ory of kidney stones; COMMENT: 1987 lithotripsy History of vertigo 07/29/2014 DX:History of vertigo History of cardiac dysrhythmia 07/29/2014 D X:History of cardiac dysrhythmia; COMMENT: piotr 05/21/13 Lactose intolerance 03/01/2017 DX:Lactose i ntolerance Family History Medical History Relation Name Comments Hypertension Father Hypertension Mother Other: uterine polyp Sister Breast cancer Neg Hx Colon cancer Neg Hx Ovarian cancer Neg Hx Relation Name Status Comments Father Mother Sister Social History Tobacco Use Types Packs/Day Years Used Date Smoking Tobacco: Never Smokeless Tobacco: Never Tobacco Cessation:Counseling Given: Not Answered Alcohol Use Standard Drinks/Week Comments No 0 (1 standard drink = 0.6 oz pur e alcohol) Comments Unknown Sex and Gender Information Value Date Recorded Sex Assigned at Not on file Legal Sex Female 7:54 AM EST Gender Identity Not on file Sexual Orientation Not on file Obstetrics History Last Filed Vital Signs Vital Sign Reading Time Taken Comments Blood Pressure 114/62 04/15/2024 7:53 AM EST Pulse 62 04/15/2024 7:53 AM EST Temperature 36.8 C (98.3 F) 02/12/2024 11:03 AM EST Respiratory Rate 15 02/12/2024 11:0 3 AM EST Oxygen Saturation 99% 04/15/2024 7:53 AM EST Inhaled Oxygen Concentration - - Weight 47.5 kg (104 lb 12.8 oz) 024 11:03 AM EST Height 162.6 cm (5' 4 ) 04/15/2024 7:53 AM EST Body Mass Index 17.99 02/12/2024 11:03 AM EST Plan of Treatment Upcoming Encounters Date Type Department Care Team (Late st Contact Info) Description 09/25/2024 12:00 PM EDT Ancillary Procedure [facility] [address] [facility] [address] [place] [address] 11/14/2024 2:00 PM EDT Office Visit Vascular Surgery - [facility] [address] [place] [phone] Days[facility] Polanco [facility] [address] [facility] [address] [place] [address] Health Maintenance Due Date Last Done Comments Hepatitis B Vaccines (1 of 3 - 19+ 3-dose series) 02/02/1984 Pneumococcal Vaccine: 50+ Years (1 of 2 - PCV) 02/02/1984 Zoster Vaccines (1 of 2) 02/02/1984 COVID-19 Vaccine (3 - Moderna risk series) 03/19/2021 02/19/2021, 01/22/2021 HIV Screening 01/22/2022 Social Influencers of Health Screening 01/22/2022 Breast Cancer Screening 10/29/2022 10/30/19 21, 10/24/2019, 10/16/2019, Additional history exists Depression Screening 02/14/2024 12/16/2022 DTaP,Tdap,and Td Vaccines (2 - Td or Tdap) 12/10/2024 12/10/2014 Colorectal Cancer Screening: FIT-DNA (Cologuard) 01/30/2027 01/31/2024, 01/31/2024, 01/31/2024 Cervical Cancer Screening: HPV 06/10/2027 06/09/2022 Cholesterol Screening (Lipid Panel) 01/02/2029 01/03/2024, 12/19/2022 RSV Immunization Adult Patients (1 - 1-dose 75+ series) 02/02/2040 Colorectal Cancer Screening: Colonoscopy Discontinued 07/17/2013 Hepatitis C Screening Completed 09/03/2014 Influenza Vaccine Discontinued 12/02/2019, , 02/10/2014, Additional history exists HIB Vaccines Aged Out No longer eligi ble based on patient's age to complete this topic HPV Vaccines Aged Out No longer eligi ble based on patient's age to complete this topic Hepatitis A Vaccines Aged Out No long er eligible based on patient's age to complete this topic IPV Vaccines Aged Out No longer eligi ble based on patient's age to complete this topic MMR Vaccines Aged Out No longer eligi ble based on patient's age to complete this topic Meningococcal ACWY Vaccine Aged Out N o longer eligible based on patient's age to complete this topic Meningococcal B Vaccine Aged Out No l onger eligible based on patient's age to complete this topic RSV Immunization Patients Under 20 months Aged Out No longer eligible based on patient's age to complete this topic Varicella Vaccines Aged Out No longer eligible based on patient's age to complete this topic Procedures Procedure Name Priority Date/Time Associated Diagnosis Comments LAB COLOGUARD COLON CANCER SCREEN Routine 01/31/2024 11:38 AM EST Special screening for malignant neoplasms, colon LIPID PANEL WITH REFLEX TO DIRECT LDL Routine 01/03/2024 8:14 AM EST Physical exam DEPRESSION SCREENING Routine 12/16/2022 HPV Routine 06/09/2022 SCREENING MAMMOGRAPHY BI 2-VIEW BREAST INC CAD Routine 10/29/2020 1:19 PM EDT Encounter for screening mammogram for malignant neoplasm of breast HEPATITIS C SCREENING Routine 09/03/2014 COLONOSCOPY Routine 07/17/2013 from Last 3 Months or Most Recently Relevant to Health Maintenance Results * Cologuard?? colon cancer screening (01/31/2024 11:38 AM EST) COLOGUARD Negative Negative [facility] Comment: NEGATIVE TEST RESULT. A negative Cologuard result indicates a low likelihood that a colorectal cancer (CRC) or advanced adenoma (adenomatous polyps with more advanced pre-malignant features) is present. The chance that a person with a negative Cologuard test has a colorectal cancer is less than 1 in 1500 (negative predictive value >99.9%) or has an advanced adenoma is less than 5.3% (negative predictive value 94.7%). These data are based on a prospective cross-sectional study of 10,000 individuals at average risk for colorectal cancer who were screened with both Cologuard and colonoscopy. (Alvarez Delgado. et al, N Engl J Med 2014;370(14):9967-1134) The normal value (reference range) for this assay is negative. COLOGUARD RE-SCREENING RECOMMENDATION: Periodic colorectal cancer screening is an important part of preventive healthcare for asymptomatic individuals at average risk for colorectal cancer. Following a negative Cologuard result, the [place] [employer] Society and U.S. Multi-Society Task Force screening guidelines recommend a Cologuard re-screening interval of 3 years. References: [place] [employer] Guideline for Colorectal Cancer Screening: https://www.cancer.org/cancer/eoudp-sclunv-qtvmir/kimqzxbtt-yugjdepgr-qmsdmjq/ac s-rec ommendations.html.; [employer], Annie CONDE, Flory LincolnK, Colorectal Cancer Screening: Recommendations for Physicians and Patients from the U.S. Multi-Society Task Force on Colorectal Cancer Screening , Am J Gastroenterology 2017; 112:8045-4012. TEST DESCRIPTION: Composite algorithmic analysis of stool DNA-biomarkers with hemoglobin immunoassay. Quantitative values of individual biomarkers are not reportable and are not associated with individual biomarker result reference ranges. Cologuard is intended for colorectal cancer screening of adults of either sex, 45 years or older, who are at average-risk for colorectal cancer (CRC). Cologuard has been approved for use by the U.S. FDA. The performance of Cologuard was established in a cross sectional study of average-risk adults aged 50-84. Cologuard performance in patients ages 45 to 49 years was estimated by sub-group analysis of near-age groups. Colonoscopies performed for a positive result may find as the most clinically significant lesion: colorectal cancer [4.0%], advanced adenoma (including sessile serrated polyps greater than or equal to 1cm diameter) [20%] or non- advanced adenoma [31%]; or no colorectal neoplasia [45%]. These estimates are derived from a prospective cross-sectional screening study of 10,000 individuals at average risk for colorectal cancer who were screened with both Cologuard and colonoscopy. (Alvarez Candelario al, N Engl J Med 2014;370(14):0371-8939.) Cologuard may produce a false negative or false positive result (no colorectal cancer or precancerous polyp present at colonoscopy follow up). A negative Cologuard test result does not guarantee the absence of CRC or advanced adenoma (pre-cancer). The current Cologuard screening interval is every 3 years. ([place] [employer] Society and U.S. Multi-Society Task Force). Cologuard performance data in a 10,000 patient pivotal study using colonoscopy as the reference method can be accessed at the following location: www.Monitor110/results. Additional description of the Cologuard test process, warnings and precautions can be found at www.PrepChampsrd.com. Stool 01/31/2024 11:3 8 AM EST 2024 12:42 PM EST Lucy Gr MD LAB MOLECULAR DIAG NOSTICS ORDERABLES Final Result Performing Organization Address City/State/[facility] Co de Phone Number [place] [address] [phone] [employer] [address] [place] [address]. [place] [address] * (ABNORMAL) Lipid panel with reflex to direct LDL (01/03/2024 8:14 AM EST) Cholesterol 210(H) 0 - 200 mg/dL LAB CHEMISTRY METHOD 01/03/2024 10:56 AM EST [facility] Triglycerides 53 0 - 150 mg/dL LAB CHEMISTRY METHOD 01/03/2024 10:56 AM EST [facility] HDL 110 >=40 mg/dL LAB CHEMISTRY METHOD 01/03/2024 10:56 AM [facility] LDL Calculated 89 0 - 100 mg/dL LAB CHEMISTRY METHOD 01/03/2024 10:56 AM [facility] VLDL Cholesterol Trisha 10.6 mg/dL LAB CHEMISTRY METHOD 01/03/2024 10:56 AM [facility] Non HDL Chol. (LDL+VLDL) 100 <145 mg/dL LAB CHEMISTRY METHOD 01/03/2024 10:56 AM [facility] Chol/HDL Ratio 1.9 0.0 - 4.4 LAB CHEMISTRY METHOD 01/03/2024 10:56 AM [facility] Blood Venous blood specimen / Unknown Venipuncture / Unknown 01/03/2024 8:14 AM EST 01/03/2024 8:14 AM EST Lucy Gr MD LAB BLOOD ORDERABL ES Final Result [facility] [address] [place] [address], * Depression Screening (12/16/2022) [facility] Depression Screening Abstracted Historical Provider HEALTH MAINTENANCE Final Result * Cervical Cancer Screening: HPV (06/09/2022) [facility] Cervical Cancer Screening: HPV Negative, Abstracted Historical Provider HEALTH MAINTENANCE Final Result * SCREENING MAMMOGRAPHY BI 2-VIEW BREAST INC CAD (10/29/2020 1:19 PM EDT) Anatomical Region Laterality Modality Radiographic Kalli ging 10/16/2019 8:50 AM EDT Narrative 10/30/2020 11:44 AM EDT This is a summary report. The complete report is available in the patient's medical record. If you cannot access the medical record, please contact the sending organization for a detailed fax or copy. Full field digital screening mammography, using both 2D and tomosynthesis techniques, reviewed with CAD and compared to previous. The breast tissue is dense, limiting sensitivity. No suspicious mass, architectural distortion or suspicious calcifications are identified. IMPRESSION: : Dense breast tissue, limiting the sensitivity of mammography. No mammographic evidence of malignancy. BIRADS 1-Negative; N. 5 year breast cancer risk assessment 0.9 % Lifetime breast cancer risk assessment 5.3 % Breast cancer risk category Low (<15%) Procedure Note Wiliam Walter MD - 2022 This is a summary report. The complete report is available in thepatient's medical record. If you cannot access the medical record, pleasecontact the sending organization for a detailed fax or copy. Full field digital screening mammography, using both 2D and tomosynthesistechniques, reviewed with CAD and compared to previous. The breast tissueis dense, limiting sensitivity. No suspicious mass, architecturaldistortion or suspicious calcifications are identified. IMPRESSION: : Dense breast tissue, limiting the sensitivity of mammography. Nomammographic evidence of malignancy. BIRADS 1-Negative; N. 5 year breast cancer risk assessment 0.9 % Lifetime breast cancer risk assessment 5.3 % Breast cancer risk category Low (<15%) Von Razo MD IMG XR PROCEDURES Final Result * Hepatitis C Screening (09/03/2014) Hepatitis C Screening Abstracted Historical [place] [place] HEALTH MAINTENANCE Final Result * Colonoscopy (07/17/2013) Colonoscopy No interpretation , Abstracted Anatomical Region Laterality Modality Other Historical Provider HEALTH MAINTENANCE Final Result from Last 3 Months or Most Recently Relevant to Health Maintenance Insurance [facility] [place] [address] Care Teams Rubber Belt Splicer Relationship Specialty Start Date End Date Lucy Gr MD [address] [place] [id number] PCP - General Internal Medicine 09/20/21
--- OUTSIDE RECORDS SUMMARY | 2024-09-11 13:14 | XMS_ITS ---
Author Name [facility] Organization Unknown Care Team Organization Name Specialty Phone Email Start Date End Da te [facility] Lucy Watkins Primary Care 06/20/2022 10/02/2023 [facility] Compa Pompa Primary Care 12/21/202109/13
== END 2024-09-11 12:41 | disposition home or self-care (01) ==
LOC: HO.US 12:40
PROVIDERS: PCP Internal Medicine; Visit Provider Student in an Organized Health Care Education/Training Program
DX: C73 Malignant neoplasm of thyroid gland (principal)
CPT/HCPCS: 76536

== ENCOUNTER → 2024-09-11 12:42 | Outpatient (BNV) | payer OTHER, SELFPAY | PROVIDERS: PCP Internal Medicine; Visit Provider Radiology Diagnostic Radiology | DX: R59.0 Localized enlarged lymph nodes (principal) | CPT/HCPCS: 76536 ==

== ENCOUNTER 2024-10-30 08:36 | Outpatient (REF) | payer OTHER, SELFPAY ==
[2024-10-30 10:10] LABS: Free T4 (Free Thyroxine) 1.22 ng/dL (0.71-1.85); Thyroid Stimulating Hormone 0.13 uIU/mL (0.32-4.0)
[2024-10-31 20:19] LABS: Thyroglobulin Antibodies 1 IU/mL (< or = 1)
== END 2024-10-30 08:37 | disposition home or self-care (01) ==
LOC: HO.LAB 08:36
PROVIDERS: PCP Internal Medicine; Visit Provider Student in an Organized Health Care Education/Training Program
DX: C73 Malignant neoplasm of thyroid gland (principal)
CPT/HCPCS: 36415; 84432; 84439; 84443; 86800

== ENCOUNTER 2024-11-07 08:36 | Outpatient (AMB) | payer OTHER, SELFPAY ==
[2024-11-07 08:39] VITALS: BP 128/76; PULSE 71; O2SAT 98; BMI 18.0
--- NOTE | 2024-11-07 08:39 | A.OFFVIS_ITS ---
Vital Signs 3 11/07/24 08:39 Height 5 ft 4 in Weight 104 lb 15.04 oz BMI 18.0 BP 128/76 Blood Pressure Location Lt brachial Position Sitting Pulse 71 Pulse Source Pulse Oximeter Pulse Oximetry (%) 98 Oxygen Delivery Method Room Air Intake Visit Reasons: thyroid cancer Intake Note: Patient present today for thyroid cancer office visit. Weight Control Lecturer Required: No Accompanied by: Self / Same As Patient Allergies No Known Allergies Allergy (Verified 11/07/24 08:42) Medication List - Last Reconciled 11/07/24 by Asia Lagos MD calcium citrate-vitamin D3 315 mg-6.25 mcg (250 unit) 2 tabs PO BID cholecalciferol (vitamin D3) 25 mcg PO DAILY levothyroxine 75 mcg PO DAILY NS omega 6-mpl-ttj-fish oil 1,000 (120-180) mg (Fish Oil) 1 cap PO DAILY HPI Comments Details: 59-year-old female here today for follow up of papillary thyroid cancer status post total thyroidectomy 05/24/[address] 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 2/4 lymph nodes positive for disease. AJCC stage I pT1b N1a. JAVIER intermediate risk of recurrence. Status post 102 mCi of I 131 therapy on 07/06/2022. Currently excellent response to therapy. 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 No angioinvasion, no lymphatic invasion, no pearly neural invasion, no extrathyroidal extension, margins negative. 2/4 lymph nodes positive for disease. AJCC stage I pT1b N1a. JAVIER intermediate risk of recurrence. 09/05/2022: Status post I 131 therapy 102 mCi 08/31/2022: TSH greater than 100, free T4 1.20, TG less than 0.4 by LC MS, TG antibody 10 09/09/2022: Whole-body scan showed residual local disease in the neck, did not show any evidence of metastatic disease. 02/08/2023: Ultrasound neck showed normal-appearing lymph nodes when I reviewed the images myself, even though they were commented on as abnormal in the report. 09/01/2023: TSH 16.62, free T4 0.85, TG 1.7, TG antibody to 09/2023: Patient saw Dr. Dee Bello at [facility] with ultrasound neck negative for any abnormal lymph nodes. No family history of thyroid cancer, no personal history of head or neck radiation. 05/08/2024: TSH 0.39, free T4 1.15, TG less than 0.1, TG antibody less than 1 Interval history 09/11/2024: Ultrasound neck shows normal-appearing lymph nodes 10/30/2024: TSH 0.13, free T4 1.22, TG less than 0.1, TG antibody less than 1 Currently denies any palpitations, diarrhea, heat intolerance, tremors. Reports tiredness Takes levothyroxine 75 mcg , good administration, adherent to medicine Physical exam General: sitting comfortably in no acute distress HEENT: normocephalic/atraumatic, Neck: supple, symmetrical, no palpable lymph nodes or masses Cardiac: normal heart sounds Pulm: normal breath sounds B/L, no added breath sounds Abd: not distended, no tenderness Extremities: no edema, no signs of myxedema Laboratory Tests 03/10/22 06/29/22 07/20/22 13:36 08:55 08:50 TSH 0.85 0.05 L 0.03 L Free T4 1.01 1.30 1.28 Thyroglobulin LC-MS/MS 2.8 H 0.8 H Thyroglobulin Thyroglobulin Antibody 16 H 14 H 08/31/22 11/28/22 01/16/23 08:00 09:30 07:45 TSH > 100.00 H 0.01 L 0.04 L Free T4 1.20 1.16 0.94 Thyroglobulin LC-MS/MS <0.4 <0.4 Thyroglobulin Thyroglobulin Antibody 10 H 4 H 02/14/23 11/15/23 12/29/23 09:10 09:00 09:03 TSH 1.66 0.12 L 0.36 Free T4 0.79 1.31 1.18 Thyroglobulin LC-MS/MS <0.4 Thyroglobulin Thyroglobulin Antibody 3 H 05/08/24 08:15 TSH 0.39 Free T4 1.15 Thyroglobulin LC-MS/MS Thyroglobulin <0.1 Thyroglobulin Antibody <1 Laboratory Tests 10/30/24 08:49 TSH 0.13 L Free T4 1.22 Thyroglobulin <0.1 Thyroglobulin Antibody <1 Exam: Ultrasound of the neck 09/11/24 Comparison: None Findings: 7 static sonographic images were submitted for review, including transverse imaged labeled as neck level 1A, transverse right neck level 5A without/with measurement and Doppler, transverse images of the thyroid bed without and with Doppler. The submitted images demonstrate single elongated benign-appearing lymph node in the right neck level 5A, 7 x 2 x 5 mm with preserved fatty hilum and hilar pattern vascular flow. The demonstrated portion of the thyroid bed demonstrates no abnormal soft tissue. Per motor vehicle clerk's note, all neck viktor levels were evaluated by the motor vehicle clerk, but no additional artists' booking representative images were submitted and interpreting radiologist was not present during the exam. Impression: Limited sonographic images as stated above, subcentimeter morphologically benign-appearing lymph node in right neck level 5A. This document has been electronically signed by: Arabella Razo MD on 09/11/2024 17:15:55 US SOFT TISSUE NECK 02/08/23 CLINICAL INFORMATION: Status post thyroidectomy. COMPARISON: None available. TECHNIQUE: Ultrasound of the neck soft tissues is performed with high- frequency landrum-scale imaging and color Doppler. FINDINGS: THYROID BED: Prior thyroidectomy. No residual thyroid tissue demonstrated in the thyroid bed. No cystic or solid nodules demonstrated in the thyroid bed. RIGHT NECK SOFT TISSUES: Scattered architecturally normal nodes are present. The nodes show normal fatty hilus, normal cortical thickness, and no cystic change or calcification. No abnormal color flow. The largest nodes are as follows: Posterior to right ear: 0.7 x 0.2 x 0.6 cm. Abnormal with absent fatty hilum. LEFT NECK SOFT TISSUES: Scattered architecturally normal nodes are present. The nodes show normal fatty hilus, normal cortical thickness, and no cystic change or calcification. No abnormal color flow. The largest nodes are as follows: Level 3: 1.6 x 0.2 x 1.6 cm. Abnormal with absent fatty hilum. Level 5B: 0.8 x 0.1 x 0.4 cm. Abnormal with absent fatty danni. US/US soft tiss head and/or neck IMPRESSION: 1. Status post thyroidectomy. No residual thyroid tissue. 2. Bilateral cervical lymph nodes. All lymph nodes appear morphologically abnormal without fatty danni although they are quite small. If clinically indicated, further evaluation of the neck soft tissues and nodes may be performed with CT scan with intravenous contrast. [facility] Medical History (Updated 05/13/24 @ 08:22 by Asia Lagos MD) Hypothyroidism Vitamin D deficiency Thyroid cancer Patient denies medical problems Surgical History Hx of total thyroidectomy Family History Paternal Grandmother Lung cancer Father No known health problems Mother Abnormal thyroid biopsy Social History Alcohol intake: never Patient Tobacco Use Status: Never used Tobacco Physical Exam Vital Signs: Last Vital Signs Pulse 71 11/07/24 08:39 BP 128/76 11/07/24 08:39 Pulse Ox 98 11/07/24 08:39 Oxygen Delivery Method Room Air 11/07/24 08:39 BMI result Body Mass Index 18.0 Assessment & Plan Assessment & Plan (1) Thyroid cancer: Code(s): C73 - Malignant neoplasm of thyroid gland Category: Medical Plan: 59-year-old female here today for follow up of papillary thyroid cancer status post total thyroidectomy 05/24/[address] 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 No angioinvasion, no lymphatic invasion, no pearly neural invasion, no extrathyroidal extension, margins negative. 2/4 lymph nodes positive for disease. AJCC stage I pT1b N1a. JAVIER intermediate risk of recurrence. Status post 102 mCi of I 131 therapy on 07/06/2022. Whole-body scan did show residual disease in the neck, however no evidence of metastatic disease. Subsequently patient has had declining TG antibodies, with most recent labs from April 2024 showing TG antibody is now negative. Thyroglobulin levels also most recently are undetectable, . Most recently labs done in October 2024 showed non stimulated TG less than 0.1. Last ultrasound neck done in August 2024 was also negative for any abnormal lymph nodes. Currently excellent response to therapy. Given excellent Response to therapy goal TSH 0.5-2. 09/11/2024: Ultrasound neck shows normal-appearing lymph nodes 10/30/2024: TSH 0.13, free T4 1.22, TG less than 0.1, TG antibody less than 1 Plan: -reduce levothyroxine to 75 mcg daily from Monday to Monday and only half a tablet on Sundays -ordered TSH, free T4 to be done in 6 weeks -ultrasound neck ordered for September 2025 with follow up in October 2025 -we will also plan to repeat tumor markers prior to her next follow up in October 2025 (2) Hypothyroidism: Code(s): E03.9 - Hypothyroidism, unspecified Category: Medical Qualifiers: Hypothyroidism type: postoperative Qualified Code(s): E89.0 - Postprocedural hypothyroidism Plan: Given excellent Response to therapy goal TSH 0.5-2. 10/30/2024: TSH 0.13, free T4 1.22, TG less than 0.1, TG antibody less than 1 Plan: -reduce levothyroxine to 75 mcg daily from Monday to Monday and only half a tablet on Sundays -ordered TSH, free T4 to be done in 6 weeks Plan I spent 30 minutes in reviewing the record, seeing the patient and documenting in the medical record. Orders: Orders 2 US soft tiss head and/or neck 09/29/25 C73 - Malignant neoplasm of thyroid gland, E89.0 - Postprocedural hypothyroidism Thyroid Stimulating Hormone 6 Weeks C73 - Malignant neoplasm of thyroid gland, E89.0 - Postprocedural hypothyroidism Free T4 (Free Thyroxine) 6 Weeks C73 - Malignant neoplasm of thyroid gland, E89.0 - Postprocedural hypothyroidism Medications: Changed 2 From levothyroxine 75 mcg PO DAILY 90 tabs 3RF NS To levothyroxine orally daily; Take 1 tablet Monday to Monday and half tablet on Sundays 90 tabs 3RF NS Patient Instructions: Levothyroxine 75 mcg :Take 1 tablet Monday to Monday and half tablet on Sundays Repeat blood work in 6 weeks ( of December ) we will reach out with results Do ultrasound of the neck a few week before next appointment in October 2025 Coding Level of Care Code Est Pt Level 4 (98935) Complex EM visit Add On G2211 Diagnoses Thyroid cancer C73 Postoperative hypothyroidism E89.0 Hypothyroidism type: postoperative Time Spent (min) 30
--- OUTSIDE RECORDS SUMMARY | 2024-11-07 09:10 | XMS_ITS ---
Author Organization [facility] [address] [facility] Address [address] [place] [address] Phone Care Team Providers Care Psychology Physician Name Role Phone Lucy Gr MD Primary Care Prov ider Active Problems Problem Noted Date Diagnosed Date [...] Hep B and C per transfer notes Current Oncology Plans No current plan information found. Past Plans No past plan information found. Radiation Treatments * No radiation treatments are documented for this patient in [facility]. Treatments may have been administered in another system. Lifetime Dose Tracking * Chemical Lifetime Dose Automatic Entry Manual Entr y CTDIvol 14.16 mGy 14.16 mGy 0 mGy
--- OUTSIDE RECORDS SUMMARY | 2024-11-07 09:10 | XMS_ITS | Clinical Summary ---
Author Organization [facility] [address] [facility] Address [address] [place] [phone] Phone Care Team Providers Care Retail Business Development Manager Name Role Phone Lucy Gr MD Primary Care Prov ider Allergies Active Allergy Reactions Criticality Noted Date Comments Other 06/09/2022 [place] (Prunus Persica) 06/15/2022 Other reaction(s): Throat Itchy Medications levothyroxine (SYNTHROID, LEVOTHROID) 75 mcg tablet Take 1 tablet (75 mcg total) by mouth 1 (one) time each day. 11/15/2023 Active B complex tablet Take 1 tablet by mouth 1 (one) time each day. Active calcium carbonate (OS-TRISHA) 1250 mg (500 mg elemental calcium) chewable tablet Chew 1 tablet (1,250 mg total). Active wlliv-0v-wqc-epa -fish oil ([place]-3 Fish OiL) 300-1,000 mg capsule Take by [...] Hep B and C per transfer notes Immunizations Name Administration Dates Next Due Influenza [...] 5 years OTHER SURGICAL HISTORY 05/24/2022 PROCEDURE: [place] THYROIDECTOMY TOTAL/COMPLETE; COMMENT: Dr. Walker Medical History [...] 07/29/2014 D X:History of cardiac dysrhythmia; COMMENT: holter 05/21/13 Lactose intolerance 03/01/2017 DX:Lactose i ntolerance [...] Care Team (Late st Contact Info) Description 11/27/2024 2:15 PM EDT Ancillary Procedure [facility] [address] [place] [phone] 12/25/2024 2:00 PM EST Office Visit Vascular Surgery - [place] [address] [place] [phone] Daysi Polanco PA [address] [place] [address] Health Maintenance Due Date Last Done Comments [...] Procedure Name Priority Date/Time Associated Diagnosis Comments ..LAB TO CALL RESULTS Routine 10/30/2024 2:18 PM EDT ..LAB TO CALL RESULTS Routine 10/30/2024 1:37 PM EDT LAB COLOGUARD COLON CANCER SCREEN Routine 01/31/2024 [...] Recently Relevant to Health Maintenance Results * Lab use only - Non-affiliated results notification (10/30/2024 2:18 PM EDT) Only the most recent of2 resultswithin the time period is included. Other Topography unknown / Unknown us Historical Provider LAB BLOOD ORDERABLES Kailey brown Result * Cologuard?? colon cancer screening (01/31/2024 11:38 AM EST) COLOGUARD Negative Negative [facility] Comment: NEGATIVE TEST RESULT. A negative [...] (Alvarez Candelario al, N Engl J Med 2014;370(14):6651-6203) The normal value (reference range) for this assay is negative. COLOGUARD RE-SCREENING RECOMMENDATION: Periodic colorectal cancer screening is an important part of preventive healthcare for asymptomatic individuals at average risk for colorectal cancer. Following a negative Cologuard result, the [place] Cancer Society and U.S. Multi-Society Task Force screening guidelines recommend a Cologuard re-screening interval of 3 years. References: [place] Cancer Society Guideline for Colorectal Cancer Screening: https://www.cancer.org/cancer/xdxza-gnewar-ubxgln/ctditcgko-obwgmcabr-auanvsz/ac s-rec ommendations.html.; [employer], Annie CR, Flory LincolnK, Colorectal Cancer Screening: Recommendations for Physicians and Patients from the U.S. Multi-Society Task Force on Colorectal Cancer Screening , Am J Gastroenterology 2017; 112:9076-4636. TEST DESCRIPTION: Composite algorithmic analysis of stool [...] (Alvarez Candelario al, N Engl J Med 2014;370(14):6312-6171.) Cologuard may produce a false negative or false positive result (no colorectal cancer or precancerous polyp present at colonoscopy follow up). A negative Cologuard test result does not guarantee the absence of CRC or advanced adenoma (pre-cancer). The current Cologuard screening interval is every 3 years. ([place] Cancer Society and U.S. Multi-Society Task Force). Cologuard performance data in a 10,000 patient pivotal study using colonoscopy as the reference method can be accessed at the following location: www.Cinpost/results. Additional description of the Cologuard test process, warnings and precautions can be found at www.Adeard.Promolta. Stool 01/31/2024 11:3 8 AM EST 2024 12:42 PM EST Lucy Gr MD LAB MOLECULAR DIAG NOSTICS ORDERABLES Final Result [employer] [place] [address] [employer] [facility] [place] [address] * (ABNORMAL) Lipid panel with reflex to direct LDL (01/03/2024 8:14 AM EST) Cholesterol 210(H) 0 - 200 mg/dL LAB CHEMISTRY METHOD 01/03/2024 10:56 AM EST [facility] Triglycerides 53 0 - 150 mg/dL LAB CHEMISTRY METHOD 01/03/2024 10:56 AM [facility] HDL 110 >=40 mg/dL LAB CHEMISTRY METHOD 01/03/2024 10:56 AM [facility] LDL Calculated 89 0 - 100 mg/dL LAB CHEMISTRY METHOD 01/03/2024 10:56 AM [facility] VLDL Cholesterol Trisha 10.6 mg/dL LAB CHEMISTRY METHOD 01/03/2024 10:56 AM [facility] Non HDL Chol. (LDL+VLDL) 100 <145 mg/dL LAB CHEMISTRY METHOD 01/03/2024 10:56 AM [facility] Chol/HDL Ratio 1.9 0.0 - 4.4 LAB CHEMISTRY METHOD 01/03/2024 10:56 AM [facility] Blood Venous blood specimen / Unknown Venipuncture / Unknown 01/03/2024 8:14 AM EST 01/03/2024 8:14 AM EST Lucy Gr MD LAB BLOOD ORDERABL ES Final Result [facility] [address] [place] [address], * Depression Screening (12/16/2022) Depression Screening Abstracted Historical Provider HEALTH MAINTENANCE Final Result * Cervical Cancer Screening: HPV (06/09/2022) Cervical Cancer Screening: HPV Negative, Abstracted Historical Provider HEALTH MAINTENANCE Final Result * SCREENING MAMMOGRAPHY BI 2-VIEW BREAST INC CAD (10/29/2020 1:19 PM EDT) Anatomical Region Laterality Modality Radiographic Kalil ging 10/16/2019 8:50 AM EDT Narrative 10/30/2020 [...] % Breast cancer risk category Low (<15%) Result [facility] Von Razo MD IMG XR PROCEDURES Final Result * Hepatitis C Screening (09/03/2014) Hepatitis C Screening Abstracted Result [facility] Historical [place] HE[facility] MAINTENANCE Final Result * Colonoscopy (07/17/2013) Colonoscopy No interpretation , Abstracted Anatomical Region Laterality Modality Other Historical [place] [facility] MAINTENANCE Final Result from Last 3 Months or Most Recently Relevant to Health Maintenance Insurance MEDICAID - [place] Care Teams Retail Business Development Manager Relationship Specialty Start Date End Date Lucy Gr MD [address] [place] [phone] PCP - General Internal Medicine 09/20/21
== END 2024-11-07 09:11 | disposition home or self-care (01) ==
PROVIDERS: PCP Internal Medicine; Visit Provider Student in an Organized Health Care Education/Training Program
DX: C73 Malignant neoplasm of thyroid gland (principal); E89.0 Postprocedural hypothyroidism
CPT/HCPCS: 99214

== ENCOUNTER → 2024-11-07 08:36 | Outpatient (BNVA) | payer OTHER, SELFPAY | PROVIDERS: PCP Internal Medicine; Visit Provider Student in an Organized Health Care Education/Training Program | DX: C73 Malignant neoplasm of thyroid gland (principal); E89.0 Postprocedural hypothyroidism | CPT/HCPCS: 99212 ==

== ENCOUNTER 2024-12-25 08:42 | Outpatient (REF) | payer OTHER, SELFPAY ==
--- OUTSIDE RECORDS SUMMARY | 2024-12-25 09:05 | XMS_ITS ---
Author Organization [facility] [address] [facility] Address [address] [place] [address] Phone Care Team Providers Care Receiving Inspector Name Role Phone Lucy Gr MD Primary [...] B and C per transfer notes Current Treatment and Therapy Plans No current plan information found. Past Treatment and Therapy Plans No past plan information found. Lifetime Dose Tracking * Chemical Lifetime Dose Automatic Entry Manual Entr y CTDIvol 14.16 mGy 14.16 mGy 0 mGy
--- OUTSIDE RECORDS SUMMARY | 2024-12-25 09:05 | XMS_ITS | Clinical Summary ---
Author Organization [facility] Address [address] [place] [phone] Phone Care Team Providers Care Program Director Group Work Name Role Phone Lucy Gr MD Primary Care Prov ider Allergies Active Allergy Reactions Criticality Noted Date Comments Other 06/09/2022 Dare (Prunus Persica) 06/15/2022 Other reaction(s): Throat Itchy Medications levothyroxine (SYNTHROID, LEVOTHROID) 75 mcg tablet Take 1 tablet (75 mcg total) by mouth 1 (one) time each day. 11/15/2023 Active B complex tablet Take 1 tablet by mouth 1 (one) time each day. Active calcium carbonate (OS-TRISHA) 1250 mg (500 mg elemental calcium) chewable tablet Chew 1 tablet (1,250 mg total). Active rlonc-1h-wnb-epa -fish oil (Aiea-3 Fish OiL) 300-1,000 mg capsule Take by [...] Encounters Date Type Department Care Team Description 12/19/2024 Telephone Vascular Surgery - [place] [address] [place] [address] Daysi Polanco PA from Last 3 Months Immunizations Immunization Administration Dates Next Due Influenza Quadravalent, MDCK [...] 5 years OTHER SURGICAL HISTORY 05/24/2022 PROCEDURE: ME THYROIDECTOMY TOTAL/COMPLETE; COMMENT: Dr. Walker Medical History [...] Care Team (Late st Contact Info) Description 01/01/2025 5:30 PM EST Appointment Radiology Department - [address] [phone] Health Maintenance Due Date Last Done Comments Hepatitis B Vaccines (1 of 3 - 19+ 3-dose series) 02/02/1984 Pneumococcal Vaccine: 50+ Years (1 of 2 - PCV) 02/02/1984 Zoster Vaccines (1 of 2) 02/02/1984 COVID-19 Vaccine (3 - Moderna risk series) 03/19/2021 02/19/2021, 01/22/2021 HIV Screening 01/22/2022 Social Influencers of Health Screening 01/22/2022 Breast Cancer Screening 10/29/2022 10/30/19, 10/24/2019, 10/16/2019, Additional history exists Depression Screening [...] Comments ..LAB TO CALL RESULTS Routine 10/30/2024 3:55 PM EDT ..LAB TO CALL RESULTS Routine 10/30/2024 2:18 [...] use only - Non-affiliated results notification (10/30/2024 3:55 PM EDT) Only the most recent of3 resultswithin the time period is included. Other Topography unknown / Unknown us Historical Provider LAB BLOOD ORDERABLES Kailey brown Result * Cologuard?? colon cancer screening (01/31/2024 11:38 AM EST) COLOGUARD Negative Negative [facility] Comment: NEGATIVE TEST RESULT. A negative [...] Delgado. et al, N Engl J Med 2014;370(14):2738-7392) The normal value (reference range) for this assay is negative. COLOGUARD RE-SCREENING RECOMMENDATION: Periodic colorectal cancer screening is an important part of preventive healthcare for asymptomatic individuals at average risk for colorectal cancer. Following a negative Cologuard result, the [place] [employer] and U.S. Multi-Society Task Force screening guidelines recommend a Cologuard re-screening interval of 3 years. References: [place] [employer] Guideline for Colorectal Cancer Screening: https://www.cancer.org/cancer/yvazw-jfyigf-khyrfx/htbbfgxgd-mvzscixll-wfiotaa/ac s-rec ommendations.html.; [employer], Annie CONDE, Flroy LincolnK, Colorectal Cancer Screening: Recommendations for Physicians and Patients from the U.S. Multi-Society Task Force on Colorectal Cancer Screening , Am J Gastroenterology 2017; 112:8626-8855. TEST DESCRIPTION: Composite algorithmic analysis of stool [...] (Alvarez Candelario al, N Engl J Med 2014;370(14):0651-5438.) Cologuard may produce a false negative or false positive result (no colorectal cancer or precancerous polyp present at colonoscopy follow up). A negative Cologuard test result does not guarantee the absence of CRC or advanced adenoma (pre-cancer). The current Cologuard screening interval is every 3 years. ([place] [employer] and U.S. Multi-Society Task Force). Cologuard performance data in a 10,000 patient pivotal study using colonoscopy as the reference method can be accessed at the following location: www.[employer]/results. Additional description of the Cologuard test process, warnings and precautions can be found at www.[employer].com. Stool 01/31/2024 11:3 8 AM EST 2024 12:42 PM EST Lucy Gr MD LAB MOLECULAR DIAG NOSTICS ORDERABLES Final Result Performing Organization Address City/State/[facility] Co de Phone Number [employer] [facility] [phone] [employer] [address] [place] [address]. [place] [address] * (ABNORMAL) Lipid panel with reflex to direct LDL (01/03/2024 8:14 AM EST) Cholesterol 210(H) 0 - 200 mg/dL LAB CHEMISTRY METHOD 01/03/2024 10:[address] [facility] Triglycerides 53 0 - 150 mg/dL LAB CHEMISTRY METHOD 01/03/2024 10:[address] [facility] HDL 110 >=40 mg/dL LAB CHEMISTRY METHOD 01/03/2024 10:[address] [facility] LDL Calculated 89 0 - 100 mg/dL LAB CHEMISTRY METHOD 01/03/2024 10:56 AM [facility] VLDL Cholesterol Trisha 10.6 mg/dL LAB CHEMISTRY METHOD 01/03/2024 10:[address] [facility] Non HDL Chol. (LDL+VLDL) 100 <145 mg/dL LAB CHEMISTRY METHOD 01/03/2024 10:[address] [facility] Chol/HDL Ratio 1.9 0.0 - 4.4 LAB CHEMISTRY METHOD 01/03/2024 10:56 AM [facility] Blood Venous blood specimen / Unknown Venipuncture / Unknown 01/03/2024 8:14 AM EST 01/03/2024 8:14 AM EST Lucy Gr MD LAB BLOOD ORDERABL ES Final Result [facility] [address] [place] [address], * Depression Screening (12/16/2022) [facility] Depression Screening Abstracted Historical Provider HEALTH MAINTENANCE Final Result * Cervical Cancer Screening: HPV (06/09/2022) [facility] Cervical Cancer Screening: HPV Negative, Abstracted [...] C Screening (09/03/2014) Hepatitis C Screening Abstracted Ash Kulkarni MD HEALTH MAINTENANCE Final Result * Colonoscopy (07/17/2013) Colonoscopy No interpretation , Abstracted Anatomical Region Laterality Modality Other Historical [place] HEALTH MAINTENANCE Final Result from Last 3 Months or Most Recently Relevant to Health Maintenance Insurance [facility] [employer] Care Teams Program Director Group Work Relationship Specialty Start Date End Date Lucy Gr MD [address] [place] [phone] PCP - General Internal Medicine 09/20/21
[2024-12-25 11:57] LABS: Free T4 (Free Thyroxine) 1.12 ng/dL (0.71-1.85); Thyroid Stimulating Hormone 0.29 uIU/mL (0.32-4.0)
== END 2024-12-25 08:43 | disposition home or self-care (01) ==
LOC: HO.10HDL 08:42
PROVIDERS: Visit Provider Student in an Organized Health Care Education/Training Program
DX: C73 Malignant neoplasm of thyroid gland (principal); E89.0 Postprocedural hypothyroidism
CPT/HCPCS: 36415; 84439; 84443